=== PATIENT | female | born 1995 | race Caucasian/White ===

== ENCOUNTER 2017-11-23 21:57 | Emergency (ER) | payer SELFPAY ==
--- NOTE | 2017-11-23 22:18 | ER Report ---
History and Physical Time Seen By MD: 22:05 Hx. of Stated Complaint: PT WANTS TO CHECK INTO S HPI/ROS CHIEF COMPLAINT: Acute schizophrenia HISTORY OF PRESENT ILLNESS: 22-year-old female brought in by police from a truck stop. Patient was apparently traveling by hitchhiking with strangers. She was acting out at the truck stop and police officers responded. She was saying that were some men that were pointing guns at her. When asked to identify these people. The patient began to point at random truckers. And then she would deny that they were the ones. Patient admits to schizoaffective disorder. She states she's been off her meds. She denies drug or alcohol ingestion. She states she is from [place]. Patient would like to be admitted voluntarily to behavioral health services. REVIEW OF SYSTEMS: Respiratory: No cough, no dyspnea. Cardiovascular: No chest pain, no palpitations. Gastrointestinal: No vomiting, no abdominal pain. Musculoskeletal: No back pain. Allergies: Coded Allergies: No Known Drug Allergies (Unverified , 11/23/17) Home Meds No Active Prescriptions or Reported Meds Reviewed Nurses Notes: Yes Old Medical Records Reviewed: Yes Constitutional Vital Sign - Last 24 Hours 11/23/17 11/23/17 22:03 23:32 Temp 98.5 Pulse 118 Resp 14 B/P (MAP) 116/104 142/84 (103) Pulse Ox 93 O2 Delivery Room Air Physical Exam General Appearance: The patient is alert, has no immediate need for airway protection and no current signs of toxicity. Vital signs stable, afebrile, pulse ox normal HEENT: Pupils equal and round no injection. TMs normal, oropharynx without redness or exudate, mucous. Membranes are moist Respiratory: Chest is non tender, lungs are clear to auscultation. Cardiac: regular rate and rhythm Gastrointestinal: Abdomen is soft and non tender, no masses, bowel sounds normal. Musculoskeletal: Neck: Neck is supple and non tender. No thyromegaly, no meningismus, no lymphadenopathy Extremities have full range of motion and are non tender. Skin: No rashes or lesions. DIFFERENTIAL DIAGNOSIS: After history and physical exam differential diagnosis was considered for depression including functional and major depression, situational depression, medication side effect, paranoid schizophrenia, schizoaffective disorder drugs and alcohol abuse. Medical Decision Making Data Points Result Diagram: 11/23/178 11/23/172217 Laboratory Hematology Test 11/23/17 22:00 11/23/17 22:18 Urine Color Lore Urine Clarity Cloudy Urine pH 5.0 pH (4.8-9.5) Urine Specific Thomson 1.029 Urine Protein 100 mg/dL (NEGATIVE) Urine Glucose (UA) Negative mg/dL (NEGATIVE) Urine Ketones Trace mg/dL (NEGATIVE) Urine Blood Negative (NEGATIVE) Urine Nitrite Negative (NEGATIVE) Urine Bilirubin Small (NEGATIVE) Urine Urobilinogen 4.0 mg/dL (0.2-1.9) Urine Leukocyte Esterase Trace (NEGATIVE) Urine RBC 2 /HPF (0-2/HPF) Urine WBC 4 /HPF (0-5/HPF) Urine Squamous Epithelial Cells Many /LPF (</=FEW) Urine Transitional Epithelial Cells Many /LPF (NONE-FEW) Urine Bacteria Few /HPF (NONE-FEW) Urine Hyaline Casts Few /LPF (NONE-FEW) Urine Mucus Few /HPF (NONE-FEW) Urine HCG, Qualitative Negative (NEGATIVE) Urine Opiates Screen Negative Urine Barbiturates Screen Negative Ur Tricyclic Antidepressants Screen Negative Urine Phencyclidine Screen Negative Urine Amphetamines Screen Positive Urine Benzodiazepines Screen Negative Urine Cocaine Screen Negative Urine Cannabinoids Screen Negative Red Blood Count 5.47 M/uL (4.17-5.56) Mean Corpuscular Volume 87.3 fL (80.0-96.0) Mean Corpuscular Hemoglobin 30.2 pg (26.0-33.0) Mean Corpuscular Hemoglobin Concent 34.6 g/dL (32.0-36.0) Red Cell Distribution Width 12.9 % (11.5-14.5) Mean Platelet Volume 8.5 fL (7.2-11.1) Neutrophils (%) (Auto) 67.7 % (39.4-72.5) Lymphocytes (%) (Auto) 21.5 % (17.6-49.6) Monocytes (%) (Auto) 9.6 % (4.1-12.4) Eosinophils (%) (Auto) 0.5 % (0.4-6.7) Basophils (%) (Auto) 0.7 % (0.3-1.4) Nucleated RBC Relative Count (auto) 0.0 /100WBC Neutrophils # (Auto) 9.4 K/uL (2.0-7.4) Lymphocytes # (Auto) 3.0 K/uL (1.3-3.6) Monocytes # (Auto) 1.3 K/uL (0.3-1.0) Eosinophils # (Auto) 0.1 K/uL (0.0-0.5) Basophils # (Auto) 0.1 K/uL (0.0-0.1) Nucleated RBC Absolute Count (auto) 0.00 K/uL Sodium Level 140 mmol/L (137-145) Potassium Level 3.3 mmol/L (3.5-5.0) Chloride Level 100 mmol/L (98-107) Carbon Dioxide Level 25 mmol/L (22-31) Blood Urea Nitrogen 14 mg/dl (7-18) Creatinine 1.00 mg/dl (0.52-1.04) Glomerular Filtration Rate Calc > 60.0 Random Glucose 98 mg/dl (75-110) Calcium Level 9.9 mg/dl (8.4-10.2) Magnesium Level 2.2 mg/dl (1.7-2.2) Total Bilirubin 1.1 mg/dl (0.2-1.3) Aspartate Amino Transf (AST/SGOT) 203 U/L (0-35) Alanine Aminotransferase (ALT/SGPT) 443 U/L (0-56) Alkaline Phosphatase 89 U/L (0-126) Total Protein 8.8 g/dl (6.3-8.2) Albumin 5.3 g/dl (3.5-5.0) Thyroid Stimulating Hormone (TSH) 5.11 uIU/ml (0.46-4.68) Salicylates Level < 10 mg/L Salicylate Last Dose Date unk Acetaminophen Level < 10 ug/ml Serum Alcohol < 10 mg/dl Chemistry Test 11/23/17 22:00 11/23/17 22:18 Urine Color Lore Urine Clarity Cloudy Urine pH 5.0 pH (4.8-9.5) Urine Specific Thomson 1.029 Urine Protein 100 mg/dL (NEGATIVE) Urine Glucose (UA) Negative mg/dL (NEGATIVE) Urine Ketones Trace mg/dL (NEGATIVE) Urine Blood Negative (NEGATIVE) Urine Nitrite Negative (NEGATIVE) Urine Bilirubin Small (NEGATIVE) Urine Urobilinogen 4.0 mg/dL (0.2-1.9) Urine Leukocyte Esterase Trace (NEGATIVE) Urine RBC 2 /HPF (0-2/HPF) Urine WBC 4 /HPF (0-5/HPF) Urine Squamous Epithelial Cells Many /LPF (</=FEW) Urine Transitional Epithelial Cells Many /LPF (NONE-FEW) Urine Bacteria Few /HPF (NONE-FEW) Urine Hyaline Casts Few /LPF (NONE-FEW) Urine Mucus Few /HPF (NONE-FEW) Urine HCG, Qualitative Negative (NEGATIVE) Urine Opiates Screen Negative Urine Barbiturates Screen Negative Ur Tricyclic Antidepressants Screen Negative Urine Phencyclidine Screen Negative Urine Amphetamines Screen Positive Urine Benzodiazepines Screen Negative Urine Cocaine Screen Negative Urine Cannabinoids Screen Negative White Blood Count 13.8 k/uL (4.5-11.0) Red Blood Count 5.47 M/uL (4.17-5.56) Hemoglobin 16.5 g/dL (12.0-16.0) Hematocrit 47.8 % (34.0-47.0) Mean Corpuscular Volume 87.3 fL (80.0-96.0) Mean Corpuscular Hemoglobin 30.2 pg (26.0-33.0) Mean Corpuscular Hemoglobin Concent 34.6 g/dL (32.0-36.0) Red Cell Distribution Width 12.9 % (11.5-14.5) Platelet Count 316 K/uL (150-450) Mean Platelet Volume 8.5 fL (7.2-11.1) Neutrophils (%) (Auto) 67.7 % (39.4-72.5) Lymphocytes (%) (Auto) 21.5 % (17.6-49.6) Monocytes (%) (Auto) 9.6 % (4.1-12.4) Eosinophils (%) (Auto) 0.5 % (0.4-6.7) Basophils (%) (Auto) 0.7 % (0.3-1.4) Nucleated RBC Relative Count (auto) 0.0 /100WBC Neutrophils # (Auto) 9.4 K/uL (2.0-7.4) Lymphocytes # (Auto) 3.0 K/uL (1.3-3.6) Monocytes # (Auto) 1.3 K/uL (0.3-1.0) Eosinophils # (Auto) 0.1 K/uL (0.0-0.5) Basophils # (Auto) 0.1 K/uL (0.0-0.1) Nucleated RBC Absolute Count (auto) 0.00 K/uL Glomerular Filtration Rate Calc > 60.0 Calcium Level 9.9 mg/dl (8.4-10.2) Magnesium Level 2.2 mg/dl (1.7-2.2) Total Bilirubin 1.1 mg/dl (0.2-1.3) Aspartate Amino Transf (AST/SGOT) 203 U/L (0-35) Alanine Aminotransferase (ALT/SGPT) 443 U/L (0-56) Alkaline Phosphatase 89 U/L (0-126) Total Protein 8.8 g/dl (6.3-8.2) Albumin 5.3 g/dl (3.5-5.0) Thyroid Stimulating Hormone (TSH) 5.11 uIU/ml (0.46-4.68) Salicylates Level < 10 mg/L Salicylate Last Dose Date unk Acetaminophen Level < 10 ug/ml Serum Alcohol < 10 mg/dl Toxicology Test 11/23/17 22:00 11/23/17 22:18 Urine Opiates Screen Negative Urine Barbiturates Screen Negative Ur Tricyclic Antidepressants Screen Negative Urine Phencyclidine Screen Negative Urine Amphetamines Screen Positive Urine Benzodiazepines Screen Negative Urine Cocaine Screen Negative Urine Cannabinoids Screen Negative Salicylates Level < 10 mg/L Salicylate Last Dose Date unk Acetaminophen Level < 10 ug/ml Serum Alcohol < 10 mg/dl Urinalysis Test 11/23/17 22:00 Urine Color Lore Urine Clarity Cloudy Urine pH 5.0 pH (4.8-9.5) Urine Specific Thomson 1.029 Urine Protein 100 mg/dL (NEGATIVE) Urine Glucose (UA) Negative mg/dL (NEGATIVE) Urine Ketones Trace mg/dL (NEGATIVE) Urine Blood Negative (NEGATIVE) Urine Nitrite Negative (NEGATIVE) Urine Bilirubin Small (NEGATIVE) Urine Urobilinogen 4.0 mg/dL (0.2-1.9) Urine Leukocyte Esterase Trace (NEGATIVE) Urine RBC 2 /HPF (0-2/HPF) Urine WBC 4 /HPF (0-5/HPF) Urine Squamous Epithelial Cells Many /LPF (</=FEW) Urine Transitional Epithelial Cells Many /LPF (NONE-FEW) Urine Bacteria Few /HPF (NONE-FEW) Urine Hyaline Casts Few /LPF (NONE-FEW) Urine Mucus Few /HPF (NONE-FEW) Urine HCG, Qualitative Negative (NEGATIVE) ED Course/Re-evaluation ED Course Patient was admitted to an examination room. H&P was done. The differential diagnoses was considered. On clinical examination, there are no findings. Patient is no active suicidal ideation. Patient is quite tension so and her reasoning and thought processes. Tox screen is positive for methamphetamines. Patient wants to be admitted to behavioral health services voluntarily. 11/23/2017 11:16:58 pm case discussed with Dr. Selma Leija psychiatrist on-call , who accepts the patient for admission Decision to Disposition Date: Nov 23, 2017 Decision to Disposition Time: 22:17 Depart Departure Latest Vital Signs Vital Signs Date Time Temp Pulse Resp B/P (MAP) Pulse Ox O2 Delivery O2 Flow Rate FiO2 11/23/17 23:32 142/84 (103) 11/23/17 22:03 98.5 118 14 93 Room Air Impression: Primary Impression: Altered mental status, unspecified Additional Impressions: Schizoaffective disorder Amphetamine abuse Elevated liver function tests Condition: Improved Disposition: XFER TO [facility] New Scripts No Active Prescriptions or Reported Meds Problem Qualifiers Primary Impression: Altered mental status, unspecified Altered mental status type: disorientation Qualified Codes: R41.0 - Disorientation, unspecified Additional Impressions: Schizoaffective disorder Schizoaffective disorder type: unspecified Qualified Codes: F25.9 - Schizoaffective disorder, unspecified TARA DENTON DO Nov 23, 2017 22:18
[2017-11-23 22:25] LABS: PLATELET COUNT, AUTOMATED 316 K/uL (150-450)
[2017-11-23] MEDS ORDERED: hydrOXYzine PAMOATE 25 MG CAP PO ONE (22:55)
[2017-11-23] MEDS ORDERED: OLANZapine ZYDIS ODT 5MG TABDP PO ONE (22:55)
[2017-11-23 23:32] VITALS: BP 142/84
== END 2017-11-23 23:36 ==
LOC: ER 22:10
DX: F25.9 Schizoaffective disorder, unspecified (principal); R41.0 Disorientation, unspecified; R79.89 Other specified abnormal findings of blood chemistry; F15.10 Other stimulant abuse, uncomplicated
CPT/HCPCS: 36415; 80305; 80320; 80329; 81001; 81025; 83735; 84443; 85025; 99284; Q0177; 82040; 82247; 82310; 82374; 82435; 82565; 82947; 84075; 84132; 84155; 84295; 84450; 84460; 84520

== ENCOUNTER 2017-11-23 23:13 | Inpatient (IN) | payer SELFPAY ==
[~2017-11-23] VITALS: Ht 162.6 cm; Wt 56.7 kg
[2017-11-23] MEDS ORDERED: MAG HYD/AL HYD/SIMETH 30ML UDC PO PRN (23:55)
[2017-11-24 05:42] VITALS: BP 130/92
[2017-11-24] MEDS: FOLIC ACID 1 MG TAB PO SCH (08:56)
[2017-11-24] MEDS: MULTIVITAMINS PO SCH (08:56)
[2017-11-24] MEDS: THIAMINE HCL 100 MG TAB PO SCH (08:57)
[2017-11-24] MEDS ORDERED: NICOTINE CARTRIDGE 1 EA PO PRN (11:05)
[2017-11-24] MEDS ORDERED: NICOTINE INH SYSTEM 10 MG/INH INH PRN (11:05)
[2017-11-24] MEDS ORDERED: OLANZapine 5 MG TAB PO ONE (11:15)
[2017-11-24] MEDS ORDERED: LORazepam 1 MG TAB PO ONE (11:15)
[2017-11-24] MEDS: NICOTINE POLACRILEX 2 MG GUM PO PRN ×3 (13:13→15:54)
[2017-11-24] MEDS: OLANZapine 5 MG TAB PO PRN ×2 (13:34→21:47)
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
[2017-11-24] MEDS ORDERED: IBUPROFEN 200 MG TAB PO PRN (15:30)
[2017-11-24 16:06] VITALS: BP 105/85
[2017-11-24] MEDS ORDERED: ARIPiprazole 10 MG TAB PO SCH (21:00)
[2017-11-25 06:10] VITALS: BP 90/68
[2017-11-25] MEDS: NICOTINE POLACRILEX 2 MG GUM PO PRN (10:32)
--- NOTE | 2017-11-25 14:27 | [facility] Progress Note ---
[facility] - Subjective Progress Notes Subjective Pt seen in Unit C with team, and later individually. Pt slept much of yesterday -- she was medicated three times for agitation and psychosis with prn zyprexa. Today she woke easily, does not appear overmedicated, and continues with significant labile affect, tangential thought process, and acknowledges hearing voices. She is mostly cooperative but alternates with being irritable/agitated- - banging on the door hollering for pain medicine "because I ache all over." Continues to refuse blood draw for repeat CBC and chem panel, even with a lot of encouragement and explanation how important these repeat tests are, given elevated WBC and LFT's on admission. She will suddenly start giggling out of the blue, told me once that her father's voice said "That's funny Donna." Also says she hears God's voice. Pt said, when I told her importance of blood test, "Infections are not real, only God is real." Said to me at one point, out of the blue, "Can I have something for my bipolar?" Says she misses her father and wishes he was in heaven "instead of here with me." Refused blood draw again at noon-- told her we will need to maintain her in Unit C until we see she can be safe and cooperative with staff requests. She agrees to continue medications, will increase abilify to 15 mg as antipsychotic/mood stabilizer. Will continue use of zyprexa in the short term as prn for agitation/psychosis. I offered her Depakote but she refused, saying she has been on it before and it "did not work." I spoke with Grandmother today who reports pt sounds "not herself, like when she was sick before" on the phone. Grandmother confirms pt had history of bizarre laughter in past, prior to getting stabilized (briefly) on haldol. Hopefully as pt's psychosis remits she will cooperate with blood draw-- depending on lab reports may need further infectious work up inc. echo to r/o endocarditis. Hepatitis panel is still pending. Suicidal Ideation: None Homicidal Ideation: None [facility] - Objective Physical Exam Vital Signs Vital Signs 11/25/17 06:10 Temp 97.6 Pulse 66 B/P (MAP) 90/68 (75) Pulse Ox 95 O2 Delivery Room Air Muscle Strength and Tone: WNL Gait and Station: Steady [facility] Medications Reviewed: Side Effects, Benefits of Medication, Risks Allergies Reviewed: Yes Mental Status Exam General Appearance: Unkept, Tearful, Psychomotor Agitation, Bizarre Mannerisms (laughter) Speech: Delayed, Rambling, Other (low volume and hard to understand often) Mood: Dysthmic/Depressed Affect: Tearful, Anxious, Agitated, Other (quite labile: variably and unpredictably anxious, irritable, laughter, withdrawn ) Thought Process: Other (tangential often-- will answer some questions logically , then suddenly off topic) Thought Content: No Suicidal Ideation, No Homicidal Ideation, Delusions (Asked to talk to her father (), says he is "here"), Auditory Halllucinations, No Visual Hallucinations, No Thought Broadcasting, No Ideas of Reference, No Obsessions, No Compulsions, No Other Sensorium: Clear Cognition: Alert & Oriented-Person, Alert & Oriented-Place, Alert & Oriented- Time, [id number] Memory: Immediate, Recent, Remote Intelligence: Average Insight Judgment: Poor Lab Hematology Test 11/24/17 00:00 11/24/17 22:18 HIV (1&2) Antibody Negative (NEGATIVE) Chemistry Test 11/24/17 00:00 11/24/17 22:18 HIV (1&2) Antibody Negative (NEGATIVE) [facility] Assessment and Plan [id number] Encounter Date: Nov 25, 2017 [id number] Encounter Time: 11:00 Tobacco Medications: Started Multpiple Antipsychotics Used: Yes Reason For >1 Antipsychotic: Abilify for ongoing use, zyprexa only for short term as prn. Problems: (1) Amphetamine abuse Status: Acute (2) Schizoaffective disorder Status: Acute (3) Abnormal laboratory test Assessment & Plan: Significantly elevated LFT's and WBC-- worrisome for hepatitis in this pt with hx IVDA. Hepatitis panel is pending. HIV is negative. Pt still refusing repeat chem panel and CBC based (at least in part) on continued psychosis. Afebrile, no physical complaints of significance. Hopefully as psychosis remits we can get repeat labs tomorrow. Consider echocardiogram to r/o endocarditis if pt still refuses repeat CBC and/or if WBC remains elevated. MAINOR OCHOA MD Nov 25, 2017 14:27
[2017-11-25] MEDS ORDERED: ARIPiprazole 10 MG TAB PO SCH (21:00)
[2017-11-25] MEDS: OLANZapine 5 MG TAB PO PRN (21:03)
[2017-11-25 21:11] VITALS: BP 90/55
[2017-11-26] MEDS: THIAMINE HCL 100 MG TAB PO SCH ×2 (08:04→08:13)
[2017-11-26] MEDS: MULTIVITAMINS PO SCH ×2 (08:04→08:12)
[2017-11-26] MEDS: FOLIC ACID 1 MG TAB PO SCH ×2 (08:04→08:13)
[2017-11-26] MEDS: OLANZapine 5 MG TAB PO PRN (09:30)
[2017-11-26] MEDS ORDERED: NICOTINE INH SYSTEM 10 MG/INH INH PRN (09:45)
[2017-11-26] MEDS ORDERED: NICOTINE CARTRIDGE 1 EA PO PRN (09:45)
[2017-11-26 11:27] LABS: PLATELET COUNT, AUTOMATED 241 K/uL (150-450)
[2017-11-26] MEDS: NICOTINE POLACRILEX 2 MG GUM PO PRN ×5 (11:42→19:54)
--- NOTE | 2017-11-26 11:52 | EKG ---
FACILITY: [facility] PATIENT NAME: JESSIE PERDOMO : [id number] MR: [id number] V: [id number] EXAM DATE: ORDERING PHYSICIAN: ALEKSANDR GALDAMEZ TECHNOLOGIST: BRAYDEN Test Reason : PSYCH USE Blood Pressure : / mmHG Vent. Rate : 083 BPM Atrial Rate : 083 BPM P-R Int : 154 ms QRS Dur : 086 ms QT Int : 394 ms P-R-T Axes : 064 085 067 degrees QTc Int : 462 ms Normal sinus rhythm with sinus arrhythmia Normal ECG No previous ECGs available Referred By: DENICE Confirmed By:
--- NOTE | 2017-11-26 12:59 | BHS Progress Note ---
S - Subjective Progress Notes Subjective Patient is cooperative with lab draw today, but appears to be responding to internal stimuli. Patient very active in her room, laughing to herself, and dancing. Will continue treatment, and planning for hopeful discharge to [place]. Will have EKG,, further labs, and switch to thorazine for sedation. Will continue to attempt contact with out of state family. Hep panel pending. Suicidal Ideation: None Homicidal Ideation: None [facility] - Objective Physical Exam Vital Signs Hematology Test 11/24/17 00:00 11/24/17 22:18 11/26/17 00:00 11/26/17 08:00 HIV (1&2) Antibody Negative (NEGATIVE) Urine Color Lore Urine Clarity Slightly-cloudy Urine pH 6.0 pH (4.8-9.5) Urine Specific [place] 1.032 Urine Protein Negative mg/dL (NEGATIVE) Urine Glucose (UA) Negative mg/dL (NEGATIVE) Urine Ketones Negative mg/dL (NEGATIVE) Urine Blood Negative (NEGATIVE) Urine Nitrite Negative (NEGATIVE) Urine Bilirubin Negative (NEGATIVE) Urine Urobilinogen 4.0 mg/dL (0.2-1.9) Urine Leukocyte Esterase Negative (NEGATIVE) Urine RBC None /HPF (0-2/HPF) Urine WBC 6 /HPF (0-5/HPF) Urine Squamous Epithelial Cells Many /LPF (</=FEW) Urine Bacteria Few /HPF (NONE-FEW) Urine Hyaline Casts Few /LPF (NONE-FEW) Urine Mucus Few /HPF (NONE-FEW) Urine HCG, Qualitative Negative (NEGATIVE) Test 11/26/17 11:10 Red Blood Count 4.60 M/uL (4.17-5.56) Mean Corpuscular Volume 88.3 fL (80.0-96.0) Mean Corpuscular Hemoglobin 30.1 pg (26.0-33.0) Mean Corpuscular Hemoglobin Concent 34.1 g/dL (32.0-36.0) Red Cell Distribution Width 13.1 % (11.5-14.5) Mean Platelet Volume 8.8 fL (7.2-11.1) Neutrophils (%) (Auto) 57.8 % (39.4-72.5) Lymphocytes (%) (Auto) 29.4 % (17.6-49.6) Monocytes (%) (Auto) 10.7 % (4.1-12.4) Eosinophils (%) (Auto) 1.6 % (0.4-6.7) Basophils (%) (Auto) 0.5 % (0.3-1.4) Nucleated RBC Relative Count (auto) 0.0 /100WBC Neutrophils # (Auto) 3.3 K/uL (2.0-7.4) Lymphocytes # (Auto) 1.7 K/uL (1.3-3.6) Monocytes # (Auto) 0.6 K/uL (0.3-1.0) Eosinophils # (Auto) 0.1 K/uL (0.0-0.5) Basophils # (Auto) 0.0 K/uL (0.0-0.1) Nucleated RBC Absolute Count (auto) 0.00 K/uL Sodium Level 143 mmol/L (137-145) Potassium Level 3.5 mmol/L (3.5-5.0) Chloride Level 104 mmol/L (98-107) Carbon Dioxide Level 26 mmol/L (22-31) Blood Urea Nitrogen 12 mg/dl (7-18) Creatinine 0.70 mg/dl (0.52-1.04) Glomerular Filtration Rate Calc > 60.0 Random Glucose 82 mg/dl (75-110) Calcium Level 9.2 mg/dl (8.4-10.2) Total Bilirubin 0.4 mg/dl (0.2-1.3) Aspartate Amino Transf (AST/SGOT) 160 U/L (0-35) Alanine Aminotransferase (ALT/SGPT) 334 U/L (0-56) Alkaline Phosphatase 63 U/L (0-126) Total Protein 6.4 g/dl (6.3-8.2) Albumin 4.0 g/dl (3.5-5.0) Chemistry Test 11/24/17 00:00 11/24/17 22:18 11/26/17 00:00 11/26/17 08:00 HIV (1&2) Antibody Negative (NEGATIVE) Urine Color Lore Urine Clarity Slightly-cloudy Urine pH 6.0 pH (4.8-9.5) Urine Specific Carson 1.032 Urine Protein Negative mg/dL (NEGATIVE) Urine Glucose (UA) Negative mg/dL (NEGATIVE) Urine Ketones Negative mg/dL (NEGATIVE) Urine Blood Negative (NEGATIVE) Urine Nitrite Negative (NEGATIVE) Urine Bilirubin Negative (NEGATIVE) Urine Urobilinogen 4.0 mg/dL (0.2-1.9) Urine Leukocyte Esterase Negative (NEGATIVE) Urine RBC None /HPF (0-2/HPF) Urine WBC 6 /HPF (0-5/HPF) Urine Squamous Epithelial Cells Many /LPF (</=FEW) Urine Bacteria Few /HPF (NONE-FEW) Urine Hyaline Casts Few /LPF (NONE-FEW) Urine Mucus Few /HPF (NONE-FEW) Urine HCG, Qualitative Negative (NEGATIVE) Test 11/26/17 11:10 White Blood Count 5.8 k/uL (4.5-11.0) Red Blood Count 4.60 M/uL (4.17-5.56) Hemoglobin 13.8 g/dL (12.0-16.0) Hematocrit 40.6 % (34.0-47.0) Mean Corpuscular Volume 88.3 fL (80.0-96.0) Mean Corpuscular Hemoglobin 30.1 pg (26.0-33.0) Mean Corpuscular Hemoglobin Concent 34.1 g/dL (32.0-36.0) Red Cell Distribution Width 13.1 % (11.5-14.5) Platelet Count 241 K/uL (150-450) Mean Platelet Volume 8.8 fL (7.2-11.1) Neutrophils (%) (Auto) 57.8 % (39.4-72.5) Lymphocytes (%) (Auto) 29.4 % (17.6-49.6) Monocytes (%) (Auto) 10.7 % (4.1-12.4) Eosinophils (%) (Auto) 1.6 % (0.4-6.7) Basophils (%) (Auto) 0.5 % (0.3-1.4) Nucleated RBC Relative Count (auto) 0.0 /100WBC Neutrophils # (Auto) 3.3 K/uL (2.0-7.4) Lymphocytes # (Auto) 1.7 K/uL (1.3-3.6) Monocytes # (Auto) 0.6 K/uL (0.3-1.0) Eosinophils # (Auto) 0.1 K/uL (0.0-0.5) Basophils # (Auto) 0.0 K/uL (0.0-0.1) Nucleated RBC Absolute Count (auto) 0.00 K/uL Glomerular Filtration Rate Calc > 60.0 Calcium Level 9.2 mg/dl (8.4-10.2) Total Bilirubin 0.4 mg/dl (0.2-1.3) Aspartate Amino Transf (AST/SGOT) 160 U/L (0-35) Alanine Aminotransferase (ALT/SGPT) 334 U/L (0-56) Alkaline Phosphatase 63 U/L (0-126) Total Protein 6.4 g/dl (6.3-8.2) Albumin 4.0 g/dl (3.5-5.0) Urinalysis Test 11/26/17 00:00 11/26/17 08:00 Urine Color Lore Urine Clarity Slightly-cloudy Urine pH 6.0 pH (4.8-9.5) Urine Specific Carson 1.032 Urine Protein Negative mg/dL (NEGATIVE) Urine Glucose (UA) Negative mg/dL (NEGATIVE) Urine Ketones Negative mg/dL (NEGATIVE) Urine Blood Negative (NEGATIVE) Urine Nitrite Negative (NEGATIVE) Urine Bilirubin Negative (NEGATIVE) Urine Urobilinogen 4.0 mg/dL (0.2-1.9) Urine Leukocyte Esterase Negative (NEGATIVE) Urine RBC None /HPF (0-2/HPF) Urine WBC 6 /HPF (0-5/HPF) Urine Squamous Epithelial Cells Many /LPF (</=FEW) Urine Bacteria Few /HPF (NONE-FEW) Urine Hyaline Casts Few /LPF (NONE-FEW) Urine Mucus Few /HPF (NONE-FEW) Urine HCG, Qualitative Negative (NEGATIVE) Vital Signs Date Time Temp Pulse Resp B/P (MAP) Pulse Ox O2 Delivery O2 Flow Rate FiO2 11/25/17 21:11 99.1 75 90/55 (67) 96 Room Air Muscle Strength and Tone: WNL Gait and Station: Steady [facility] Medications Reviewed: Side Effects, Benefits of Medication, Risks Allergies Reviewed: Yes Mental Status Exam General Appearance: Casual, Polite, Unkept, No Tearful, Psychomotor Agitation, Bizarre Mannerisms (laughter) Speech: Delayed, Rambling, Other (low volume and hard to understand often) Mood: Dysthmic/Depressed Affect: No Tearful, Anxious, Agitated, Other (quite labile: variably and unpredictably anxious, irritable, laughter, withdrawn ) Thought Process: Goal Directed (I want ativan), Other (tangential often-- will answer some questions logically, then suddenly off topic) Thought Content: No Suicidal Ideation, No Homicidal Ideation, Delusions (Asked to talk to her father (), says he is "here"), Auditory Halllucinations, No Visual Hallucinations, No Thought Broadcasting, No Ideas of Reference, No Obsessions, No Compulsions, No Other Sensorium: Clear Cognition: Alert & Oriented-Person, Alert & Oriented-Place, Alert & Oriented- Time, Pwtdh-Ajaysjbh-Ebdhjoypk Memory: Immediate, Recent, Remote Intelligence: Average Insight Judgment: Poor (grossly limited) Result Diagram: 11/26/17 1110 11/26/17 1110 [facility] Assessment and Plan Dwry-sv-[id number] Encounter Date: Nov 26, 2017 Gnnp-rc-Hryy Encounter Time: 11:00 Tobacco Medications: Started Multpiple Antipsychotics Used: No Reason For >1 Antipsychotic: Will use Thorazine, as more predictable sedation. Problems: (1) Amphetamine abuse Status: Chronic (2) Schizoaffective disorder Status: Chronic Condition 1. continue treatment. 2. patient will start thorazine. 3. stop abilify and zyprexa. 4. formulate discharge plan. Problem Qualifiers (1) Schizoaffective disorder: Schizoaffective disorder type: unspecified Qualified Codes: F25.9 - Schizoaffective disorder, unspecified ALEKSANDR GALDAMEZ MD Nov 26, 2017 12:59
[2017-11-26] MEDS: chlorproMAZINE 25 MG TAB PO PRN ×3 (18:55→21:19)
[2017-11-26] MEDS ORDERED: chlorproMAZINE 25 MG TAB PO ONE (19:05)
[2017-11-26] MEDS: chlorproMAZINE 25 MG TAB PO SCH (21:00)
[2017-11-26 21:23] VITALS: BP 111/66
[2017-11-27] MEDS: MULTIVITAMINS PO SCH (08:36)
[2017-11-27] MEDS: FOLIC ACID 1 MG TAB PO SCH (08:36)
[2017-11-27] MEDS: THIAMINE HCL 100 MG TAB PO SCH (08:37)
[2017-11-27] MEDS: NICOTINE POLACRILEX 2 MG GUM PO PRN ×9 (10:35→20:28)
--- NOTE | 2017-11-27 12:00 | BHS Progress Note ---
BHS - Subjective Progress Notes Subjective Patient stating "I want to go home to [facility]" today, and able to exit her room and be with the general population, with no concerns. Patient having restorative sleep with the administration of thorazine at [facility]. Will continue thorazine for its more predictable sedating effects, and will stop zyprexa and abilify. Patient noted to have previously undiagnosed hepatitis C, and patient information will be provided. Will work toward having patient return to [place], and strongly encourage her to refrain from continuing current destructive lifestyle, and continue treatment. Suicidal Ideation: None Homicidal Ideation: None S - Objective Physical Exam Vital Signs Vital Signs Date Time Temp Pulse Resp B/P (MAP) Pulse Ox O2 Delivery O2 Flow Rate FiO2 11/26/17 21:23 98.4 86 111/66 (81) 97 Room Air Hematology Test 11/24/17 00:00 11/24/17 22:18 11/26/17 00:00 11/26/17 08:00 Hepatitis A IgM Antibody Negative (Negative) Hepatitis B Surface Antigen Negative (Negative) Hepatitis B Core IgM Antibody Negative (Negative) Hepatitis C Antibody >11.00 IV Hepatitis C Interpretation High pos (Negative) Hepatitis Interpretation See note HIV (1&2) Antibody Negative (NEGATIVE) Urine Color Lore Urine Clarity Slightly-cloudy Urine pH 6.0 pH (4.8-9.5) Urine Specific [place] 1.032 Urine Protein Negative mg/dL (NEGATIVE) Urine Glucose (UA) Negative mg/dL (NEGATIVE) Urine Ketones Negative mg/dL (NEGATIVE) Urine Blood Negative (NEGATIVE) Urine Nitrite Negative (NEGATIVE) Urine Bilirubin Negative (NEGATIVE) Urine Urobilinogen 4.0 mg/dL (0.2-1.9) Urine Leukocyte Esterase Negative (NEGATIVE) Urine RBC None /HPF (0-2/HPF) Urine WBC 6 /HPF (0-5/HPF) Urine Squamous Epithelial Cells Many /LPF (</=FEW) Urine Bacteria Few /HPF (NONE-FEW) Urine Hyaline Casts Few /LPF (NONE-FEW) Urine Mucus Few /HPF (NONE-FEW) Urine HCG, Qualitative Negative (NEGATIVE) Test 11/26/17 11:10 Red Blood Count 4.60 M/uL (4.17-5.56) Mean Corpuscular Volume 88.3 fL (80.0-96.0) Mean Corpuscular Hemoglobin 30.1 pg (26.0-33.0) Mean Corpuscular Hemoglobin Concent 34.1 g/dL (32.0-36.0) Red Cell Distribution Width 13.1 % (11.5-14.5) Mean Platelet Volume 8.8 fL (7.2-11.1) Neutrophils (%) (Auto) 57.8 % (39.4-72.5) Lymphocytes (%) (Auto) 29.4 % (17.6-49.6) Monocytes (%) (Auto) 10.7 % (4.1-12.4) Eosinophils (%) (Auto) 1.6 % (0.4-6.7) Basophils (%) (Auto) 0.5 % (0.3-1.4) Nucleated RBC Relative Count (auto) 0.0 /100WBC Neutrophils # (Auto) 3.3 K/uL (2.0-7.4) Lymphocytes # (Auto) 1.7 K/uL (1.3-3.6) Monocytes # (Auto) 0.6 K/uL (0.3-1.0) Eosinophils # (Auto) 0.1 K/uL (0.0-0.5) Basophils # (Auto) 0.0 K/uL (0.0-0.1) Nucleated RBC Absolute Count (auto) 0.00 K/uL Sodium Level 143 mmol/L (137-145) Potassium Level 3.5 mmol/L (3.5-5.0) Chloride Level 104 mmol/L (98-107) Carbon Dioxide Level 26 mmol/L (22-31) Blood Urea Nitrogen 12 mg/dl (7-18) Creatinine 0.70 mg/dl (0.52-1.04) Glomerular Filtration Rate Calc > 60.0 Random Glucose 82 mg/dl (75-110) Calcium Level 9.2 mg/dl (8.4-10.2) Total Bilirubin 0.4 mg/dl (0.2-1.3) Aspartate Amino Transf (AST/SGOT) 160 U/L (0-35) Alanine Aminotransferase (ALT/SGPT) 334 U/L (0-56) Alkaline Phosphatase 63 U/L (0-126) Total Protein 6.4 g/dl (6.3-8.2) Albumin 4.0 g/dl (3.5-5.0) Free Thyroxine 1.57 ng/dl (0.78-2.19) Chemistry Test 11/24/17 00:00 11/24/17 22:18 11/26/17 00:00 11/26/17 08:00 Hepatitis A IgM Antibody Negative (Negative) Hepatitis B Surface Antigen Negative (Negative) Hepatitis B Core IgM Antibody Negative (Negative) Hepatitis C Antibody >11.00 IV Hepatitis C Interpretation High pos (Negative) Hepatitis Interpretation See note HIV (1&2) Antibody Negative (NEGATIVE) Urine Color Lore Urine Clarity Slightly-cloudy Urine pH 6.0 pH (4.8-9.5) Urine Specific [place] 1.032 Urine Protein Negative mg/dL (NEGATIVE) Urine Glucose (UA) Negative mg/dL (NEGATIVE) Urine Ketones Negative mg/dL (NEGATIVE) Urine Blood Negative (NEGATIVE) Urine Nitrite Negative (NEGATIVE) Urine Bilirubin Negative (NEGATIVE) Urine Urobilinogen 4.0 mg/dL (0.2-1.9) Urine Leukocyte Esterase Negative (NEGATIVE) Urine RBC None /HPF (0-2/HPF) Urine WBC 6 /HPF (0-5/HPF) Urine Squamous Epithelial Cells Many /LPF (</=FEW) Urine Bacteria Few /HPF (NONE-FEW) Urine Hyaline Casts Few /LPF (NONE-FEW) Urine Mucus Few /HPF (NONE-FEW) Urine HCG, Qualitative Negative (NEGATIVE) Test 11/26/17 11:10 White Blood Count 5.8 k/uL (4.5-11.0) Red Blood Count 4.60 M/uL (4.17-5.56) Hemoglobin 13.8 g/dL (12.0-16.0) Hematocrit 40.6 % (34.0-47.0) Mean Corpuscular Volume 88.3 fL (80.0-96.0) Mean Corpuscular Hemoglobin 30.1 pg (26.0-33.0) Mean Corpuscular Hemoglobin Concent 34.1 g/dL (32.0-36.0) Red Cell Distribution Width 13.1 % (11.5-14.5) Platelet Count 241 K/uL (150-450) Mean Platelet Volume 8.8 fL (7.2-11.1) Neutrophils (%) (Auto) 57.8 % (39.4-72.5) Lymphocytes (%) (Auto) 29.4 % (17.6-49.6) Monocytes (%) (Auto) 10.7 % (4.1-12.4) Eosinophils (%) (Auto) 1.6 % (0.4-6.7) Basophils (%) (Auto) 0.5 % (0.3-1.4) Nucleated RBC Relative Count (auto) 0.0 /100WBC Neutrophils # (Auto) 3.3 K/uL (2.0-7.4) Lymphocytes # (Auto) 1.7 K/uL (1.3-3.6) Monocytes # (Auto) 0.6 K/uL (0.3-1.0) Eosinophils # (Auto) 0.1 K/uL (0.0-0.5) Basophils # (Auto) 0.0 K/uL (0.0-0.1) Nucleated RBC Absolute Count (auto) 0.00 K/uL Glomerular Filtration Rate Calc > 60.0 Calcium Level 9.2 mg/dl (8.4-10.2) Total Bilirubin 0.4 mg/dl (0.2-1.3) Aspartate Amino Transf (AST/SGOT) 160 U/L (0-35) Alanine Aminotransferase (ALT/SGPT) 334 U/L (0-56) Alkaline Phosphatase 63 U/L (0-126) Total Protein 6.4 g/dl (6.3-8.2) Albumin 4.0 g/dl (3.5-5.0) Free Thyroxine 1.57 ng/dl (0.78-2.19) Urinalysis Test 11/26/17 00:00 11/26/17 08:00 Urine Color Lore Urine Clarity Slightly-cloudy Urine pH 6.0 pH (4.8-9.5) Urine Specific [place] 1.032 Urine Protein Negative mg/dL (NEGATIVE) Urine Glucose (UA) Negative mg/dL (NEGATIVE) Urine Ketones Negative mg/dL (NEGATIVE) Urine Blood Negative (NEGATIVE) Urine Nitrite Negative (NEGATIVE) Urine Bilirubin Negative (NEGATIVE) Urine Urobilinogen 4.0 mg/dL (0.2-1.9) Urine Leukocyte Esterase Negative (NEGATIVE) Urine RBC None /HPF (0-2/HPF) Urine WBC 6 /HPF (0-5/HPF) Urine Squamous Epithelial Cells Many /LPF (</=FEW) Urine Bacteria Few /HPF (NONE-FEW) Urine Hyaline Casts Few /LPF (NONE-FEW) Urine Mucus Few /HPF (NONE-FEW) Urine HCG, Qualitative Negative (NEGATIVE) Muscle Strength and Tone: WNL Gait and Station: Steady [facility] Medications Reviewed: Side Effects, Benefits of Medication, Risks Allergies Reviewed: Yes Mental Status Exam General Appearance: Casual, Polite, Unkept, No Tearful, Psychomotor Agitation, Bizarre Mannerisms (laughter) Speech: Delayed, Rambling, Other (low volume and hard to understand often) Mood: Dysthmic/Depressed Affect: No Tearful, Anxious, Agitated, Other (quite labile: variably and unpredictably anxious, irritable, laughter, withdrawn ) Thought Process: Goal Directed (I want ativan), Other (tangential often-- will answer some questions logically, then suddenly off topic) Thought Content: No Suicidal Ideation, No Homicidal Ideation, Delusions (Asked to talk to her father (), says he is "here"), Auditory Halllucinations, No Visual Hallucinations, No Thought Broadcasting, No Ideas of Reference, No Obsessions, No Compulsions, No Other Sensorium: Clear Cognition: Alert & Oriented-Person, Alert & Oriented-Place, Alert & Oriented- Time, Ttixc-Cwvhbeus-Cuqnlgiey Memory: Immediate, Recent, Remote Intelligence: Average Insight Judgment: Poor (strong history of addiction, poor life skills. ) Result Diagram: 11/26/17 1110 11/26/17 1110 [facility] Assessment and Plan Abcc-ec-Lbcz Encounter Date: Nov 27, 2017 Oxxo-vf-Vpfy Encounter Time: 10:00 [facility] Plan: Necessary Precautions, Individual/Group Therapy, Admin/Titrate Meds, Educate Patient Tobacco Medications: Started Multpiple Antipsychotics Used: No Reason For >1 Antipsychotic: Will use Thorazine, as more predictable sedation. Problems: (1) Amphetamine abuse Status: Chronic (2) Schizoaffective disorder Status: Chronic Condition 1. continue thorazine. 2. arrange for travel to [place]. Problem Qualifiers (1) Schizoaffective disorder: Schizoaffective disorder type: unspecified Qualified Codes: F25.9 - Schizoaffective disorder, unspecified ALEKSANDR GALDAMEZ MD Nov 27, 2017 12:00
[2017-11-27] MEDS: chlorproMAZINE 25 MG TAB PO PRN (12:36)
[2017-11-27] MEDS ORDERED: LORazepam 1 MG TAB PO ONE (12:50)
[2017-11-27] MEDS ORDERED: chlorproMAZINE 25 MG TAB PO ONE (12:50)
[2017-11-27 13:24] VITALS: BP 111/78
[2017-11-27] MEDS: diphenhydrAMINE 25 MG CAP PO SCH (20:28)
[2017-11-27] MEDS: chlorproMAZINE 25 MG TAB PO SCH (20:30)
[2017-11-27 21:49] VITALS: BP 128/83
[2017-11-28] MEDS: THIAMINE HCL 100 MG TAB PO SCH ×2 (08:26→08:30)
[2017-11-28] MEDS: FOLIC ACID 1 MG TAB PO SCH ×2 (08:26→08:30)
[2017-11-28] MEDS: MULTIVITAMINS PO SCH ×2 (08:26→08:30)
[2017-11-28] MEDS: NICOTINE POLACRILEX 2 MG GUM PO PRN ×4 (10:51→20:16)
[2017-11-28] MEDS ORDERED: QUEtiapine FUM 100 MG TAB PO ONE (10:55)
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
[2017-11-28] MEDS: chlorproMAZINE 25 MG TAB PO SCH (20:15)
[2017-11-28] MEDS: diphenhydrAMINE 25 MG CAP PO SCH (20:15)
[2017-11-29] MEDS: MULTIVITAMINS PO SCH (08:32)
[2017-11-29] MEDS: THIAMINE HCL 100 MG TAB PO SCH (08:33)
[2017-11-29] MEDS: FOLIC ACID 1 MG TAB PO SCH (08:33)
[2017-11-29 09:02] VITALS: BP 129/67
[2017-11-29] MEDS: NICOTINE POLACRILEX 2 MG GUM PO PRN (11:33)
[2017-11-29] MEDS ORDERED: NICOTINE CARTRIDGE 1 EA PO PRN (11:40)
[2017-11-29] MEDS: chlorproMAZINE 25 MG TAB PO SCH (12:52)
[2017-11-29] MEDS: NICOTINE INH SYSTEM 10 MG/INH INH PRN (14:15)
[2017-11-29] MEDS ORDERED: chlorproMAZINE 25 MG TAB PO ONE ×2 (15:00→15:05)
[2017-11-29] MEDS ORDERED: LORazepam 1 MG TAB ONE (15:03)
[2017-11-29] MEDS ORDERED: diphenhydrAMINE 25 MG CAP PO ONE (15:05)
[2017-11-29] MEDS ORDERED: LORazepam 1 MG TAB PO ONE (15:05)
--- NOTE | 2017-11-29 15:48 | BHS Progress Note ---
[facility] - Subjective Progress Notes Subjective Pt continues to be extremely labile-- one minute cooperative, the next laughing to herself, the next angry and banging doors. She had episode this afternoon where she let out a blood-curdling scream, then took off clothes and started banging her head against the wall. Medicated orally with CPZ 50 mg, benadryl 50 mg and ativan 2 mg with good result. Pt still reporting hearing AH of her fathers voice, still c/o mood swings, racing thoughts, paces the unit a lot, needy with multiple requests from nursing staff, often requesting "medicine for anxiety", or "medicine for my bipolar." Will increase standing dose CPZ to 100 mg q am and 150 mg q HS, and use prn's as needed. Suicidal Ideation: None Homicidal Ideation: None [facility] - Objective Physical Exam Vital Signs Vital Signs 11/29/17 09:02 Temp 98.0 Pulse 102 B/P (MAP) 129/67 (87) Pulse Ox 96 O2 Delivery Room Air Muscle Strength and Tone: WNL Gait and Station: Steady [facility] Medications Reviewed: Side Effects, Benefits of Medication, Risks Allergies Reviewed: Yes Mental Status Exam General Appearance: Unkept, Other (aggressive today one episode slamming doors , head-banging) Speech: Rambling, Inappropriate, Other (low volume at times, at other times yelling and cursing) Mood: Dysthmic/Depressed (upset today about not leaving with lease purchase truck driver who she says is coming to get her) Affect: Withdrawn, Agitated (extremely labile) Thought Process: Loose Associations Thought Content: Suicidal Ideation (Denies), No Homicidal Ideation, Delusions, Auditory Halllucinations, No Visual Hallucinations, No Thought Broadcasting, No Ideas of Reference, No Obsessions, No Compulsions, Other (Laughs bizzarely at stimuli that seems to be internal. ) Sensorium: Clear Cognition: Alert & Oriented-Person, Alert & Oriented-Place, Alert & Oriented- Time Memory: Immediate Intelligence: Average Insight Judgment: Poor Result Diagram: 11/26/17 1110 11/26/17 1110 [facility] Assessment and Plan [id number] Encounter Date: Nov 29, 2017 Godr-bi-Sjea Encounter Time: 10:00 [facility] Plan: Necessary Precautions, Individual/Group Therapy, Admin/Titrate Meds, Educate Patient Tobacco Medications: Started Multpiple Antipsychotics Used: No Reason For >1 Antipsychotic: Will use Thorazine, as more predictable sedation. Problems: (1) Schizoaffective disorder Status: Chronic (2) Amphetamine abuse Status: Chronic (3) Hepatitis C Problem Qualifiers (1) Schizoaffective disorder: Schizoaffective disorder type: unspecified Qualified Codes: F25.9 - Schizoaffective disorder, unspecified MAINOR OCHOA MD Nov 29, 2017 15:48
[2017-11-29] MEDS ORDERED: chlorproMAZINE 25 MG TAB PO SCH (21:00)
[2017-11-29 21:35] VITALS: BP 123/64
[2017-11-29] MEDS: diphenhydrAMINE 25 MG CAP PO SCH (22:07)
[2017-11-30 05:51] VITALS: BP 95/50
[2017-11-30] MEDS: MULTIVITAMINS PO SCH (08:06)
[2017-11-30] MEDS: THIAMINE HCL 100 MG TAB PO SCH (08:06)
[2017-11-30] MEDS: chlorproMAZINE 25 MG TAB PO SCH (08:06)
[2017-11-30] MEDS: FOLIC ACID 1 MG TAB PO SCH (08:06)
--- NOTE | 2017-11-30 14:02 | BHS Progress Note ---
[facility] - Subjective Progress Notes Subjective Pt. seen. She continues to be highly labile-- this morning refused to come out of bed, swore at the therapist. Later cooperative, came to the conference room , discussed her medications with me. She continues to say that "these meds aren 't working," referring to thorazine. I did point out to her that although she says that, we do see some slow improvement in terms of less psychosis, better sleep, somewhat more mood stability. She continues to press for benzo's, asking for valium or ativan. Again we discussed that benzo's are contraindicated bc of her history of substance abuse as well as ineffective as mood stabilizers. I gave her a choice between using seroquel or thorazine as her standing mood stabilizer, and she chose seroquel. Told her that barring any significant side effects, we are NOT discussing or changing her standing meds any more, since she has been so ambivalent and needy requesting meds and changes. She is still disorganized in her behavior, her room has trash on the floor, she needed encouragement to get a shower. Tolerating meds well so far-- her BP was a little lower this am after 150mg of thorazine last night. Seroquel will likely be better tolerated in terms of BP... Her hearing is Sunday am for mental health court. Pt with schizoaffective disorder, methamphetamine dependence, vulnerable young adult, needs longer time on medication for stabilization before she can safely travel back to [place] and transition to outpatient care. Suicidal Ideation: None Homicidal Ideation: None [facility] - Objective Physical Exam Vital Signs Vital Signs 11/30/17 05:51 Temp 97.1 Pulse 90 B/P (MAP) 95/50 (65) Pulse Ox 95 O2 Delivery Room Air Muscle Strength and Tone: WNL Gait and Station: Steady [facility] Medications Reviewed: Side Effects, Benefits of Medication, Risks Allergies Reviewed: Yes Mental Status Exam General Appearance: Unkept Speech: Rambling, Inappropriate, Other (low volume at times, at other times yelling and cursing) Mood: Dysthmic/Depressed (upset today about not leaving with truck sales representative who she says is coming to get her) Affect: Withdrawn, Agitated (extremely labile), Other (labile with bizarre laughter at times) Thought Process: Other (circumstantial at best, often tangential) Thought Content: No Suicidal Ideation, No Homicidal Ideation, Delusions, Auditory Halllucinations, No Visual Hallucinations, No Thought Broadcasting, No Ideas of Reference, No Obsessions, No Compulsions, Other (Laughs bizzarely at stimuli that seems to be internal. ) Sensorium: Clear Cognition: Alert & Oriented-Person, Alert & Oriented-Place, Alert & Oriented- Time Memory: Immediate Intelligence: Average Insight Judgment: Poor Result Diagram: 11/26/17 1110 11/26/17 1110 [facility] Assessment and Plan [id number] Encounter Date: Nov 30, 2017 [id number] Encounter Time: 11:00 [facility] Plan: Necessary Precautions, Individual/Group Therapy, Admin/Titrate Meds, Educate Patient Tobacco Medications: Started Multpiple Antipsychotics Used: No Reason For >1 Antipsychotic: Will use Thorazine, as more predictable sedation. Problems: (1) Schizoaffective disorder Status: Chronic (2) Amphetamine abuse Status: Chronic (3) Hepatitis C Problem Qualifiers (1) Schizoaffective disorder: Schizoaffective disorder type: unspecified Qualified Codes: F25.9 - Schizoaffective disorder, unspecified MANIOR OCHOA MD Nov 30, 2017 14:01
[2017-11-30] MEDS ORDERED: OLANZapine ZYDIS ODT 5MG TABDP PO PRN (14:05)
[2017-11-30] MEDS ORDERED: LORazepam 2 MG/ML VIAL IM PRN (14:10)
[2017-11-30] MEDS ORDERED: WATER STERILE 10 ML VIAL IM ONLY PRN (14:10)
[2017-11-30] MEDS ORDERED: diphenhydrAMINE 50 MG/ML VIAL IM PRN (14:10)
[2017-11-30] MEDS ORDERED: OLANZapine 10 MG VIAL IM ONLY PRN (14:10)
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
[2017-11-30] MEDS: NICOTINE INH SYSTEM 10 MG/INH INH PRN (16:43)
[2017-11-30] MEDS: QUEtiapine FUM 100 MG TAB PO SCH (20:16)
[2017-12-01] MEDS: THIAMINE HCL 100 MG TAB PO SCH (08:11)
[2017-12-01] MEDS: MULTIVITAMINS PO SCH (08:12)
[2017-12-01] MEDS: FOLIC ACID 1 MG TAB PO SCH (08:12)
[2017-12-01] MEDS ORDERED: QUEtiapine FUM 100 MG TAB PO SCH (09:00)
[2017-12-01] MEDS: NICOTINE INH SYSTEM 10 MG/INH INH PRN (11:02)
[2017-12-01] MEDS ORDERED: DIAZEPAM 5 MG TAB PO ONE (11:45)
[2017-12-01] MEDS ORDERED: DIAZEPAM 50 MG/10 ML MDV IM ONE (13:25)
--- NOTE | 2017-12-01 13:38 | BHS Progress Note ---
[facility] - Subjective Progress Notes Subjective This morning, Donna declined to get out of bed for rounds. I went into her room and she was under the covers. She said that she would not get up to talk to us. She had been willing to take her morning dose of Seroquel, however. I said that I would return to talk to her later in the morning. After about an hour, Donna did get up and came to my office. She was restless and saying that she needed medications for her mood disorder. I said that as soon as I finished with my prior patient, I would talk to her. Within a few minutes, she began turning over chairs and slamming doors. Nursing called a code yellow and I immediately came to the desk to talk to the patient. She was highly agitated , yelling, threatening. I ordered IM olanzapine 15 mgs, lorazepam 2 mgs and Benadryl 50 mgs. Donna accepted the IM meds but continued agitated and within a few minutes began slamming doors and damaging the unit. We placed the patient in the seclusion area where she barricaded herself in between the door to two doors in the area. Staff engaged and attempted to de-escalate her. I spoke to the house supervisro and requested that we remove the outer door. She ultimately began to calm down and I spoke with her again and asked about medications she thought might be helpful for her. She feels that she needs "a mood stabilizer." She mentioned "Valium, Klonopin, and Xanax" as agents that have been helpful to her in the past. I ordered an additional 5 mgs of Valium and she agreed to take that orally. We continued close observation, offered food and a Gonzalez blanket. She eventually became more calm but then suddenly exploded again about 1300. I ordered 5 mgs of diazepam IM at that time and also an afternoon dose of Seroquel 200 mgs. She was somewhat calmer for a short time, but then again became threatening, screaming and I ordered chlorpromazine 100 mgs and clonazepam 1 mg orally. Throughout this ordeal, I met with the patient frequently in her room assessing her response to medications as well as level of agitation and trying to problem- solve with her what we need to do to help her. She confided to me that her father was killed in an accident three weeks ago. She has been hearing his voice and seeing "people" coming in and out. She tells me that she cannot tolerate being alone. I asked, again, if she felt suicidal. She said that when is is extremely upset, she feels that way but she does not want to kill herself and would not do it. In addition to talking to the guest house manager who joined us on the unit for several hours, I also talked to Art Isaac about the situation as well as one staff's request that we send the patient to senior care. Mr. Isaac and I agreed that this would not be the best course and might endanger her further. Instead, we would focus on aggressive medication intervention. I also asked for a one-on- one for Donna. Suicidal Ideation: Resolving [facility] - Objective Physical Exam Gait and Station: Steady [facility] Medications Reviewed: Side Effects, Benefits of Medication, Risks Allergies Reviewed: Yes Mental Status Exam General Appearance: Good Eye Contact, Unkept, Tearful, Psychomotor Agitation Speech: Rambling, Inappropriate, Other (Agitated at times, screaming) Mood: Dysthmic/Depressed (upset today about not leaving with box truck washer who she says is coming to get her), Hyperthymic Affect: Anxious, Agitated (extremely labile), Other (Occasional inappropriate laughter. See notes above.) Thought Process: Flight of Ideas, Other (keeps saying she just needs to go home ) Thought Content: Suicidal Ideation (Said she felt suicidal this morning but then by the late afternoon, these feelings had passed.), Auditory Halllucinations, Visual Hallucinations, Other (Hears her father's voice and has been talking to him.) Sensorium: Clear Cognition: Alert & Oriented-Person, Alert & Oriented-Place Memory: Immediate Intelligence: Other (Appears average. Did not do more formal testing) Insight Judgment: Poor B[facility] Assessment and Plan [id number] Encounter Date: Dec 01, 2017 [id number] Encounter Time: 09:15 [facility] Plan: Individual/Group Therapy, Admin/Titrate Meds, Educate Patient Tobacco Medications: Started Multpiple Antipsychotics Used: Yes Reason For >1 Antipsychotic: Acute agitation. Used PRN Zyprexa following am Seroquel. This was not sufficient and we also tried chlorpromazine as well as more Seroquel. Problems: (1) Schizoaffective disorder Status: Chronic Assessment & Plan: Extremely agitated. Placed in seclusion and administered PRN medications. Will provide close observation to reassurance and to prevent injury to patient and staff. Requested a one-on-one. Ordered an EKG given the number of medications administered and their potential to cause conduction delay. None found. I have ordered Seroquel 200 mgs and Klonopin 1 mg each am and at 1400 and Seroquel 300 mgs and Klonopin at hs. I have also ordered Chlorpromazine 100 mgs orally or 50 mgs IM and/or Klonopin 1 mg every four hours for extreme agitation. We corin a chem panel to check LFT's later in the evening. (2) Amphetamine abuse Status: Chronic (3) Elevated liver function tests Status: Acute Assessment & Plan: No nausea, vomiting, diarrhea or complaints of abdominal pain. Need to monitor LFT's and be aware of the potential for medications to exacerbate liver injury (4) Hepatitis C (5) Sinus tachycardia Condition Patient was highly agitated today, destroying fixtures, overturning chairs, slamming doors. She is also complaining of feeling suicidal. We placed her in seclusion for her own safety and to protect others and initiated aggressive medications to help her get back into control. Problem Qualifiers (1) Schizoaffective disorder: Schizoaffective disorder type: bipolar Qualified Codes: F25.0 - Schizoaffective disorder, bipolar type MARIAJOSE CONNELL DO Dec 01, 2017 13:38
[2017-12-01] MEDS ORDERED: QUEtiapine FUM 100 MG TAB PO ONE ×3 (13:55→23:05)
[2017-12-01 14:00] VITALS: BP 118/62
[2017-12-01] MEDS ORDERED: clonazePAM 1 MG TAB PO ONE (14:30)
[2017-12-01] MEDS ORDERED: chlorproMAZINE 25 MG TAB PO ONE (14:30)
[2017-12-01] MEDS: NICOTINE POLACRILEX 2 MG GUM PO PRN ×6 (16:00→22:40)
[2017-12-01] MEDS ORDERED: clonazePAM 1 MG TAB PO PRN (16:15)
[2017-12-01 16:40] VITALS: BP 120/52
[2017-12-01 17:57] VITALS: BP 119/38
[2017-12-01] MEDS ORDERED: clonazePAM 1 MG TAB PO SCH ×3 (18:00→21:00)
[2017-12-01] MEDS: QUEtiapine FUM 100 MG TAB PO SCH (21:00)
[2017-12-01] MEDS: clonazePAM 1 MG TAB PO SCH ×2 (21:00→23:13)
[2017-12-02] MEDS: NICOTINE POLACRILEX 2 MG GUM PO PRN ×6 (03:19→22:11)
[2017-12-02] MEDS: FOLIC ACID 1 MG TAB PO SCH (08:22)
[2017-12-02] MEDS: THIAMINE HCL 100 MG TAB PO SCH (08:22)
[2017-12-02] MEDS: MULTIVITAMINS PO SCH (08:22)
[2017-12-02] MEDS: clonazePAM 1 MG TAB PO SCH ×4 (08:22→20:15)
[2017-12-02 08:28] VITALS: BP 104/68
[2017-12-02] MEDS ORDERED: QUEtiapine FUM 100 MG TAB PO SCH ×2 (09:00→14:00)
--- NOTE | 2017-12-02 09:51 | BHS Progress Note ---
BHS - Subjective Progress Notes Subjective Donna continued to have agitation beginning in the evening and required an additional dose of Seroquel 300 mgs and Klonopin 1 mg following her scheduled bedtime dose. She was up several times during the night to use the bathroom. Has not appeared overly sedated or unsteady. Did complain of some nausea during the night. Was initially calm and more cooperative this morning. I entered Donna's room to talk to her around 9:00 this morning. She was under the covers, moving, but said that she did not want to talk to me and kept her face covered with the blanket. She continues on a one-to-one. Yesterday, Donna required extremely large doses of medications: on 12/02, she received 1100 mgs of Seroquel, 4 mgs of Klonopin, 2 mgs of Ativan, 10 mgs of diazepam, 100 mgs of chlopromazine, and 10 mgs of Zyprexa. I was reassured by her EKG and labs as well as her vitals. She still has mild tachycardia and normal blood pressures. This morning, BP was 104/68 this morning and pulse 101. After reviewing the medications we gave yesterday and discussing with nursing staff, I ordered Seroquel 300 mgs and Klonopin four times daily, but to hold the medication of the patient appeared sedated. Just before lunchtime, Donna had another outburst and started screaming and staff called another code yellow. She received an oral prn of chlopromazine 100 mgs. I talked with her again. She was agitated and very restless. Tells me that she has always been this way and it did not start with the medication. (I recalled the same presentation yesterday when she came to my office before I started high-dose medication). She was still very agitated after an hour and I gave her 1 mg of Klonopin. After about 20 minutes, her agitation lessened but then returned with more screaming, slamming her fist on the glass. There was a second code yellow. I talked with her in her room with staff present for about another 30 minutes. She became calmer, again, and talked her her nightmares, audio and visual hallucinations. She asked for more Seroquel and said she wanted to try to sleep which she did after getting her afternoon dose of 300 mgs. Suicidal Ideation: Ongoing (While agitated, Donna often says she is suicidal then denies it when she becomes calm and wants more privileges) [facility] - Objective Physical Exam Gait and Station: Steady [facility] Medications Reviewed: Side Effects, Benefits of Medication, Risks Allergies Reviewed: Yes Mental Status Exam General Appearance: Good Eye Contact, Unkept, Tearful, Psychomotor Agitation, Other (variable throughout the day) Speech: Rambling, Inappropriate, Other (Agitated at times, screaming, then calm and open) Mood: Dysthmic/Depressed (upset today about not leaving with assembler truck trailer who she says is coming to get her), Hyperthymic Affect: Anxious, Agitated (extremely labile), Other (Occasional inappropriate laughter. See notes above.) Thought Process: Flight of Ideas, Other (keeps saying she just needs to go home , can't stand isolation, nothing is working) Thought Content: Suicidal Ideation (Said she felt suicidal this morning but then by the late afternoon, these feelings had passed.), Auditory Halllucinations, Visual Hallucinations, Other (Hears her father's voice and has been talking to him.) Sensorium: Clear Cognition: Alert & Oriented-Person, Alert & Oriented-Place Memory: Immediate, Recent, Remote Intelligence: Other (Appears average. Did not do more formal testing) Insight Judgment: Poor Result Diagram: 12/01/172042 [facility] Assessment and Plan Scez-uo-Tcov Encounter Date: Dec 02, 2017 Ufzq-uo-Bnbk Encounter Time: 09:00 [facility] Plan: Necessary Precautions, Individual/Group Therapy, Admin/Titrate Meds, Educate Patient Tobacco Medications: Started Multpiple Antipsychotics Used: Yes Reason For >1 Antipsychotic: I have Seroquel ordered routinely and we have used prn chlorpromazine Problems: (1) Schizoaffective disorder Status: Chronic Assessment & Plan: Donna will continue on a one-to-one in our seclusion area until she demonstrates that she can tolerate the stimulation and increased freedom of the milieu safely. I do not want her to decompensate again today like she did yesterday and will use very aggressive medications to help her remain safe and in control. I am ordering Seroquel 300 mgs and Klonopin four times daily which, I understand, is more that the recommended daily dose of Seroquel. I am also aware that Klonopin will continue to accumulate because of his half-life. When Donna begins to show some signs of sedation, I will begin to titrate these downward. I will repeat an EKG this afternoon (2) Amphetamine abuse Status: Chronic (3) Elevated liver function tests Status: Acute (4) Hepatitis C (5) Sinus tachycardia Problem Qualifiers (1) Schizoaffective disorder: Schizoaffective disorder type: bipolar Qualified Codes: F25.0 - Schizoaffective disorder, bipolar type MARIAJOSE CONNELL DO Dec 02, 2017 06:42
[2017-12-02] MEDS: chlorproMAZINE 25 MG TAB PO PRN (11:32)
[2017-12-02 11:37] VITALS: BP 123/70
--- NOTE | 2017-12-02 12:57 | EKG ---
FACILITY: [facility] PATIENT NAME: JESSIE PERDOMO : [id number] MR: [id number] V: [id number] EXAM DATE: ORDERING PHYSICIAN: MARIAJOSE CONNELL TECHNOLOGIST: NAZ Test Reason : ANTIPSYCHOTIC USE Blood Pressure : / mmHG Vent. Rate : 105 BPM Atrial Rate : 105 BPM P-R Int : 140 ms QRS Dur : 086 ms QT Int : 366 ms P-R-T Axes : 068 089 061 degrees QTc Int : 483 ms Sinus tachycardia Otherwise normal ECG When compared with ECG of 26-NOV-2017 11:34, No significant change was found Confirmed by JEFFERSON MEZA ([id number]) on 12/02/2017 7:12:53 PM Referred By: GABRIELA Confirmed By:JEFFERSON MEZA
[2017-12-02] MEDS: QUEtiapine FUM 100 MG TAB PO SCH ×3 (13:12→20:15)
--- NOTE | 2017-12-02 16:06 | EKG ---
FACILITY: [facility] PATIENT NAME: JESSIE PERDOMO : [id number] MR: [id number] V: [id number] EXAM DATE: ORDERING PHYSICIAN: MARIAJOSE CONNELL TECHNOLOGIST: NAZ Test Reason : ANTIPSYCHOTIC MEDS Blood Pressure : / mmHG Vent. Rate : 098 BPM Atrial Rate : 098 BPM P-R Int : 180 ms QRS Dur : 086 ms QT Int : 368 ms P-R-T Axes : 069 089 073 degrees QTc Int : 469 ms Normal sinus rhythm Normal ECG When compared with ECG of 01-DEC-2017 14:47, No significant change was found Confirmed by JEFFERSON MEZA ([id number]) on 12/02/2017 7:13:28 PM Referred By: BECKI Confirmed By:JEFFERSON MEZA
[2017-12-02 19:02] VITALS: BP 132/58
[2017-12-02 22:00] VITALS: BP 120/50
[2017-12-02] MEDS: clonazePAM 1 MG TAB PO PRN (23:00)
[2017-12-03] MEDS: clonazePAM 1 MG TAB PO PRN ×2 (07:06→20:58)
[2017-12-03] MEDS: NICOTINE POLACRILEX 2 MG GUM PO PRN ×5 (07:07→22:10)
[2017-12-03] MEDS: MULTIVITAMINS PO SCH (07:48)
[2017-12-03] MEDS: THIAMINE HCL 100 MG TAB PO SCH (07:48)
[2017-12-03] MEDS: QUEtiapine FUM 100 MG TAB PO SCH ×4 (07:48→20:18)
[2017-12-03] MEDS: FOLIC ACID 1 MG TAB PO SCH (07:48)
[2017-12-03] MEDS: clonazePAM 1 MG TAB PO SCH ×5 (07:49→20:18)
[2017-12-03] MEDS ORDERED: IBUPROFEN 800 MG TAB PO ONE (08:40)
[2017-12-03] MEDS ORDERED: MAGNESIUM HYDROXIDE* 30ML UDCP PO PRN (10:10)
[2017-12-03 12:11] VITALS: BP 123/82
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
[2017-12-03] MEDS: chlorproMAZINE 25 MG TAB PO PRN (15:08)
[2017-12-03] MEDS ORDERED: DOCUSATE SODIUM 100 MG CAP PO SCH (21:00)
[2017-12-04] MEDS: clonazePAM 1 MG TAB PO PRN (02:57)
[2017-12-04] MEDS: FOLIC ACID 1 MG TAB PO SCH (08:38)
[2017-12-04] MEDS: MULTIVITAMINS PO SCH (08:38)
[2017-12-04] MEDS: THIAMINE HCL 100 MG TAB PO SCH (08:38)
[2017-12-04] MEDS: QUEtiapine FUM 100 MG TAB PO SCH ×4 (08:39→20:35)
[2017-12-04 08:46] VITALS: BP 119/92
[2017-12-04] MEDS: NICOTINE POLACRILEX 2 MG GUM PO PRN ×6 (11:12→21:30)
[2017-12-04 11:25] LABS: PLATELET COUNT, AUTOMATED 222 K/uL (150-450)
[2017-12-04] MEDS: clonazePAM 1 MG TAB PO SCH ×3 (12:59→20:35)
[2017-12-04] MEDS ORDERED: IBUPROFEN 600 MG TAB PO PRN (16:10)
[2017-12-04] MEDS ORDERED: IBUPROFEN 600 MG TAB PO ONE (16:10)
[2017-12-04] MEDS ORDERED: lamoTRIgine 25 MG TAB PO ONE (16:10)
--- NOTE | 2017-12-04 16:30 | BHS Progress Note ---
S - Subjective Progress Notes Subjective Pt seen with staff in Unit C, then later again in adolescent area. She remains in control, has not had any aggressive behavior-- last code yellow was Sunday afternoon. She is not oversedated from medication. This afternoon when RN and I went to talk with her she was pleasant and smiling at first. Then asked how long she will be here. As we explained that 10 day started yesterday she became visibly agitated, unable to focus or hear what we were saying, tearful, increased pacing and rocking, saying over and over how she just wants to go home , "Ten days is too long, I can't..." We tried to encourage relaxation, or talking, or watching a funny video, but she continued to pace and cry. She did not become aggressive. She talked about how depressed she is, and I asked if she would like to add lamictal to her regimen-- this should help with mood stability, in particular with the depressed end, which seems to be getting worse since admission. Will start lamictal 50 mg q am and continue clonazepam 1 mg QID and seroquel 300 mg QID. We have dc'd prn clonazepam, and staff are encouraging her to use coping skills and tolerate anxiety as she waits for her standing medications. Labs today (noted below) show an increase in LFT's compared to last draw, but not as high as on admission. Suicidal Ideation: None Homicidal Ideation: None S - Objective Physical Exam Vital Signs Vital Signs 12/01/17 12/04/17 17:57 08:46 Temp 98.4 Pulse 104 Resp 16 B/P (MAP) 119/92 (101) Pulse Ox 95 O2 Delivery Room Air Muscle Strength and Tone: WNL Gait and Station: Steady [facility] Medications Reviewed: Side Effects, Benefits of Medication, Risks Allergies Reviewed: Yes Mental Status Exam General Appearance: Cooperative, Unkept, Tearful, Psychomotor Agitation, Other (variable throughout the day) Speech: Rambling, Inappropriate (cursing when frustrated. No screaming today.) Mood: Dysthmic/Depressed, Hyperthymic Affect: Sad (becoming more consistently depressed), Tearful, Anxious, Agitated (extremely labile), Other (no bizarre laughter today) Thought Process: Other (overall still tangential-- a LITTLE more organized today) Thought Content: No Suicidal Ideation, No Homicidal Ideation, No Delusions, Auditory Halllucinations, Visual Hallucinations, No Thought Broadcasting, No Ideas of Reference, No Obsessions, No Compulsions Sensorium: Clear Cognition: Alert & Oriented-Person, Alert & Oriented-Place, Alert-Oriented- Situation Memory: Immediate, Recent, Remote Intelligence: Average Insight Judgment: Poor Result Diagram: 12/04/17 1118 12/04/17 1118 [facility] Assessment and Plan Slvr-is-Pmld Encounter Date: Dec 04, 2017 Ceoq-gv-Yuur Encounter Time: 11:00 [facility] Plan: Necessary Precautions, Individual/Group Therapy, Admin/Titrate Meds, Educate Patient Tobacco Medications: Started Multpiple Antipsychotics Used: Yes Reason For >1 Antipsychotic: I have Seroquel ordered routinely and we have used prn chlorpromazine Problems: (1) Schizoaffective disorder Status: Chronic (2) Amphetamine abuse Status: Chronic (3) Hepatitis C Problem Qualifiers (1) Schizoaffective disorder: Schizoaffective disorder type: bipolar Qualified Codes: F25.0 - Schizoaffective disorder, bipolar type MAINOR OCHOA MD Dec 04, 2017 16:30
[2017-12-04 16:37] VITALS: BP 103/61
[2017-12-04 18:17] VITALS: BP 114/68
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
[2017-12-04] MEDS: chlorproMAZINE 25 MG TAB PO PRN (23:22)
[2017-12-05] MEDS: FOLIC ACID 1 MG TAB PO SCH (08:30)
[2017-12-05] MEDS: clonazePAM 1 MG TAB PO SCH ×2 (08:31→17:16)
[2017-12-05] MEDS: QUEtiapine FUM 100 MG TAB PO SCH ×4 (08:31→20:35)
[2017-12-05] MEDS: MULTIVITAMINS PO SCH (08:31)
[2017-12-05] MEDS: THIAMINE HCL 100 MG TAB PO SCH (08:31)
[2017-12-05] MEDS: NICOTINE POLACRILEX 2 MG GUM PO PRN ×5 (08:35→20:53)
[2017-12-05 08:45] VITALS: BP 114/69
[2017-12-05] MEDS ORDERED: lamoTRIgine 25 MG TAB PO SCH (09:00)
[2017-12-05] MEDS: LITHIUM CARBONATE 300 MG CAP PO SCH ×2 (10:33→17:17)
--- NOTE | 2017-12-05 12:06 | BHS Progress Note ---
BHS - Subjective Progress Notes Subjective Patient able to maintain her composure today, when dealing with stressful call during treatment team from mother and Grandma. Patient indicating a desire to return to [place], and denies need of further care in an inpatient unit. Patient noted to be thinking in a much more linear fashion. Patient will be allowed to be in the general population, patient remains cooperative. Patient denies any psychotic symptoms today. Patient stating she needs "the mood stabilizer Klonopin". Patient now willing to take lithium. Originally lithium was thought to not be appropriate secondary to patient having to have levels drawn and concerns of non-compliance as an outpatient. However patient now has probable hepatitis C, and requires large doses of hepatic metabolized medications to maintain stability. The patient's tolerance alone of sedating anti-psychotics suggests ongoing bipolar elevated symptoms. In order to avoid further additional hepatic impairment, will start lithium today in hopes that less anti-psychotics are needed. Will stop Lamictal. Will encourage compliance, with possible option of return to [place], verses hearing for commitment. Suicidal Ideation: None Homicidal Ideation: None BHS - Objective Physical Exam Vital Signs Vital Signs Date Time Temp Pulse Resp B/P (MAP) Pulse Ox O2 Delivery O2 Flow Rate FiO2 12/05/17 08:45 98.0 100 114/69 (84) 99 Room Air 12/01/17 17:57 16 Hematology Test 11/24/17 00:00 11/24/17 22:18 11/26/17 00:00 11/26/17 08:00 Hepatitis A IgM Antibody Negative (Negative) Hepatitis B Surface Antigen Negative (Negative) Hepatitis B Core IgM Antibody Negative (Negative) Hepatitis C Antibody >11.00 IV Hepatitis C Interpretation High pos (Negative) Hepatitis Interpretation See note HIV (1&2) Antibody Negative (NEGATIVE) Urine Color Lore Urine Clarity Slightly-cloudy Urine pH 6.0 pH (4.8-9.5) Urine Specific [place] 1.032 Urine Protein Negative mg/dL (NEGATIVE) Urine Glucose (UA) Negative mg/dL (NEGATIVE) Urine Ketones Negative mg/dL (NEGATIVE) Urine Blood Negative (NEGATIVE) Urine Nitrite Negative (NEGATIVE) Urine Bilirubin Negative (NEGATIVE) Urine Urobilinogen 4.0 mg/dL (0.2-1.9) Urine Leukocyte Esterase Negative (NEGATIVE) Urine RBC None /HPF (0-2/HPF) Urine WBC 6 /HPF (0-5/HPF) Urine Squamous Epithelial Cells Many /LPF (</=FEW) Urine Bacteria Few /HPF (NONE-FEW) Urine Hyaline Casts Few /LPF (NONE-FEW) Urine Mucus Few /HPF (NONE-FEW) Urine HCG, Qualitative Negative (NEGATIVE) Test 11/26/17 11:10 12/04/17 11:18 Free Thyroxine 1.57 ng/dl (0.78-2.19) Free Triiodothyronine 3.0 pg/mL (2.4-4.2) Red Blood Count 4.26 M/uL (4.17-5.56) Mean Corpuscular Volume 88.6 fL (80.0-96.0) Mean Corpuscular Hemoglobin 30.6 pg (26.0-33.0) Mean Corpuscular Hemoglobin Concent 34.5 g/dL (32.0-36.0) Red Cell Distribution Width 13.4 % (11.5-14.5) Mean Platelet Volume 8.6 fL (7.2-11.1) Neutrophils (%) (Auto) 54.6 % (39.4-72.5) Lymphocytes (%) (Auto) 27.4 % (17.6-49.6) Monocytes (%) (Auto) 14.1 % (4.1-12.4) Eosinophils (%) (Auto) 3.3 % (0.4-6.7) Basophils (%) (Auto) 0.6 % (0.3-1.4) Nucleated RBC Relative Count (auto) 0.0 /100WBC Neutrophils # (Auto) 3.3 K/uL (2.0-7.4) Lymphocytes # (Auto) 1.7 K/uL (1.3-3.6) Monocytes # (Auto) 0.9 K/uL (0.3-1.0) Eosinophils # (Auto) 0.2 K/uL (0.0-0.5) Basophils # (Auto) 0.0 K/uL (0.0-0.1) Nucleated RBC Absolute Count (auto) 0.00 K/uL Sodium Level 137 mmol/L (137-145) Potassium Level 3.9 mmol/L (3.5-5.0) Chloride Level 101 mmol/L (98-107) Carbon Dioxide Level 26 mmol/L (22-31) Blood Urea Nitrogen 16 mg/dl (7-18) Creatinine 0.70 mg/dl (0.52-1.04) Glomerular Filtration Rate Calc > 60.0 Random Glucose 115 mg/dl (75-110) Calcium Level 8.6 mg/dl (8.4-10.2) Total Bilirubin 0.2 mg/dl (0.2-1.3) Aspartate Amino Transf (AST/SGOT) 194 U/L (0-35) Alanine Aminotransferase (ALT/SGPT) 385 U/L (0-56) Alkaline Phosphatase 60 U/L (0-126) Total Protein 5.6 g/dl (6.3-8.2) Albumin 3.4 g/dl (3.5-5.0) Chemistry Test 11/24/17 00:00 11/24/17 22:18 11/26/17 00:00 11/26/17 08:00 Hepatitis A IgM Antibody Negative (Negative) Hepatitis B Surface Antigen Negative (Negative) Hepatitis B Core IgM Antibody Negative (Negative) Hepatitis C Antibody >11.00 IV Hepatitis C Interpretation High pos (Negative) Hepatitis Interpretation See note HIV (1&2) Antibody Negative (NEGATIVE) Urine Color Lore Urine Clarity Slightly-cloudy Urine pH 6.0 pH (4.8-9.5) Urine Specific [place] 1.032 Urine Protein Negative mg/dL (NEGATIVE) Urine Glucose (UA) Negative mg/dL (NEGATIVE) Urine Ketones Negative mg/dL (NEGATIVE) Urine Blood Negative (NEGATIVE) Urine Nitrite Negative (NEGATIVE) Urine Bilirubin Negative (NEGATIVE) Urine Urobilinogen 4.0 mg/dL (0.2-1.9) Urine Leukocyte Esterase Negative (NEGATIVE) Urine RBC None /HPF (0-2/HPF) Urine WBC 6 /HPF (0-5/HPF) Urine Squamous Epithelial Cells Many /LPF (</=FEW) Urine Bacteria Few /HPF (NONE-FEW) Urine Hyaline Casts Few /LPF (NONE-FEW) Urine Mucus Few /HPF (NONE-FEW) Urine HCG, Qualitative Negative (NEGATIVE) Test 11/26/17 11:10 12/04/17 11:18 Free Thyroxine 1.57 ng/dl (0.78-2.19) Free Triiodothyronine 3.0 pg/mL (2.4-4.2) White Blood Count 6.1 k/uL (4.5-11.0) Red Blood Count 4.26 M/uL (4.17-5.56) Hemoglobin 13.0 g/dL (12.0-16.0) Hematocrit 37.8 % (34.0-47.0) Mean Corpuscular Volume 88.6 fL (80.0-96.0) Mean Corpuscular Hemoglobin 30.6 pg (26.0-33.0) Mean Corpuscular Hemoglobin Concent 34.5 g/dL (32.0-36.0) Red Cell Distribution Width 13.4 % (11.5-14.5) Platelet Count 222 K/uL (150-450) Mean Platelet Volume 8.6 fL (7.2-11.1) Neutrophils (%) (Auto) 54.6 % (39.4-72.5) Lymphocytes (%) (Auto) 27.4 % (17.6-49.6) Monocytes (%) (Auto) 14.1 % (4.1-12.4) Eosinophils (%) (Auto) 3.3 % (0.4-6.7) Basophils (%) (Auto) 0.6 % (0.3-1.4) Nucleated RBC Relative Count (auto) 0.0 /100WBC Neutrophils # (Auto) 3.3 K/uL (2.0-7.4) Lymphocytes # (Auto) 1.7 K/uL (1.3-3.6) Monocytes # (Auto) 0.9 K/uL (0.3-1.0) Eosinophils # (Auto) 0.2 K/uL (0.0-0.5) Basophils # (Auto) 0.0 K/uL (0.0-0.1) Nucleated RBC Absolute Count (auto) 0.00 K/uL Glomerular Filtration Rate Calc > 60.0 Calcium Level 8.6 mg/dl (8.4-10.2) Total Bilirubin 0.2 mg/dl (0.2-1.3) Aspartate Amino Transf (AST/SGOT) 194 U/L (0-35) Alanine Aminotransferase (ALT/SGPT) 385 U/L (0-56) Alkaline Phosphatase 60 U/L (0-126) Total Protein 5.6 g/dl (6.3-8.2) Albumin 3.4 g/dl (3.5-5.0) Urinalysis Test 11/26/17 00:00 11/26/17 08:00 Urine Color Lore Urine Clarity Slightly-cloudy Urine pH 6.0 pH (4.8-9.5) Urine Specific [place] 1.032 Urine Protein Negative mg/dL (NEGATIVE) Urine Glucose (UA) Negative mg/dL (NEGATIVE) Urine Ketones Negative mg/dL (NEGATIVE) Urine Blood Negative (NEGATIVE) Urine Nitrite Negative (NEGATIVE) Urine Bilirubin Negative (NEGATIVE) Urine Urobilinogen 4.0 mg/dL (0.2-1.9) Urine Leukocyte Esterase Negative (NEGATIVE) Urine RBC None /HPF (0-2/HPF) Urine WBC 6 /HPF (0-5/HPF) Urine Squamous Epithelial Cells Many /LPF (</=FEW) Urine Bacteria Few /HPF (NONE-FEW) Urine Hyaline Casts Few /LPF (NONE-FEW) Urine Mucus Few /HPF (NONE-FEW) Urine HCG, Qualitative Negative (NEGATIVE) Muscle Strength and Tone: WNL Gait and Station: Steady [facility] Medications Reviewed: Side Effects, Benefits of Medication, Risks Allergies Reviewed: Yes Mental Status Exam General Appearance: Casual, Cooperative, Polite, Unkept, No Tearful, Psychomotor Agitation (minimal), No Psychomotor Retardation, Other (variable throughout the day) Speech: Clear, Spontaneous, Normal Rate, Normal Rhythm, Normal Volume, Normal Tone, Rambling, Inappropriate (cursing when frustrated. No screaming today.) Mood: Dysthmic/Depressed, Hyperthymic Affect: Calm, Neutral, Tearful, Anxious, Agitated (minimal and controlled today. ) Thought Process: Organized, No Loose Associations, Other (Overall still tangential) Thought Content: No Suicidal Ideation, No Homicidal Ideation, No Delusions, Auditory Halllucinations, Visual Hallucinations, No Thought Broadcasting, No Ideas of Reference, No Obsessions, No Compulsions Sensorium: Clear Cognition: Alert & Oriented-Person, Alert & Oriented-Place, Alert-Oriented- Situation Memory: Immediate, Recent, Remote Intelligence: Average Insight Judgment: Poor (concerning drug addiction, medications helpful in stabilizing underlying schizoaffective condition. ) Result Diagram: 12/04/17 1118 12/04/17 1118 [facility] Assessment and Plan [id number] Encounter Date: Dec 05, 2017 [id number] Encounter Time: 09:00 S Plan: Necessary Precautions, Individual/Group Therapy, Admin/Titrate Meds, Educate Patient Tobacco Medications: Started Multpiple Antipsychotics Used: No Problems: (1) Amphetamine abuse Status: Chronic (2) Schizoaffective disorder Status: Chronic Condition 1. start lithium. 2. stop lamictal. 3. continue treatment. 4. lower daytime dose of Klonopin. 5. explore potential disposition options. Problem Qualifiers (1) Schizoaffective disorder: Schizoaffective disorder type: bipolar Qualified Codes: F25.0 - Schizoaffective disorder, bipolar type ALEKSANDR GALDAMEZ MD Dec 05, 2017 12:06
[2017-12-05] MEDS: clonazePAM 0.5 MG TAB PO SCH ×2 (12:59→20:35)
[2017-12-05] MEDS ORDERED: clonazePAM 0.5 MG TAB PO SCH (13:00)
[2017-12-05] MEDS ORDERED: clonazePAM 0.5 MG ODT TABDP PO SCH (13:00)
[2017-12-05 20:26] VITALS: BP 125/85
[2017-12-05] MEDS: TRIMETH/SULFA DS 160-800MG TAB PO SCH (21:40)
[2017-12-05] MEDS ORDERED: hydrOXYzine PAMOATE 25 MG CAP PO PRN (22:25)
[2017-12-06] MEDS: NICOTINE POLACRILEX 2 MG GUM PO PRN ×8 (04:47→19:39)
[2017-12-06 05:48] VITALS: BP 119/51
--- NOTE | 2017-12-06 08:15 | EKG ---
FACILITY: [facility] PATIENT NAME: JESSIE PERDOMO : [id number] MR: [id number] V: [id number] EXAM DATE: ORDERING PHYSICIAN: ALEKSANDR GALDAMEZ TECHNOLOGIST: AGUS Test Reason : TAKINGMEDS Blood Pressure : / mmHG Vent. Rate : 098 BPM Atrial Rate : 098 BPM P-R Int : 200 ms QRS Dur : 084 ms QT Int : 374 ms P-R-T Axes : 056 086 057 degrees QTc Int : 477 ms Sinus rhythm with rate at upper limits of normal Nonspecific ST findings inferior leads When compared with ECG of 02-DEC-2017 15:52, No significant change was found Confirmed by NARCISA HITCHCOCK ([id number] on 12/06/2017 3:25:15 PM Referred By: GABRIELA Confirmed By:NARCISA HITCHCOCK
[2017-12-06] MEDS: FOLIC ACID 1 MG TAB PO SCH (08:46)
[2017-12-06] MEDS: clonazePAM 1 MG TAB PO SCH ×2 (08:46→20:23)
[2017-12-06] MEDS: OMEGA-3 500 MG CAP PO SCH (08:46)
[2017-12-06] MEDS: TRIMETH/SULFA DS 160-800MG TAB PO SCH ×2 (08:46→20:22)
[2017-12-06] MEDS: LITHIUM CARBONATE 300 MG CAP PO SCH (08:46)
[2017-12-06] MEDS: CHOLECALCIFEROL 1000 UNIT TAB PO SCH (08:47)
[2017-12-06] MEDS: MULTIVITAMINS PO SCH (08:47)
[2017-12-06] MEDS: THIAMINE HCL 100 MG TAB PO SCH (08:47)
--- NOTE | 2017-12-06 09:18 | BHS Progress Note ---
[facility] - Subjective Progress Notes Subjective Patient very polite and cooperative today, and taking a much more active role in her treatment. Patient logically pursuing bus ticket purchase. Patient at this point is stabilizing well. Hopefully lithium will allow for reduction in seroquel. Patient has questionable UA, along with clinical complaints of dysuria. Bactrim started. Will have lithium level and routine labs in AM. Will decrease seroquel overall and load heavier in evening. will increase lithium. Stop ibuprofen, and tylenol. Explore disposition options today. At this point will plan for discharge back to [place] where patient will hopefully continue treatment, and avoid illicit substance use. Suicidal Ideation: None Homicidal Ideation: None [facility] - Objective Physical Exam Vital Signs Vital Signs Date Time Temp Pulse Resp B/P (MAP) Pulse Ox O2 Delivery O2 Flow Rate FiO2 12/06/17 05:48 97.7 102 119/51 (73) 97 Room Air Muscle Strength and Tone: WNL Gait and Station: Steady [facility] Medications Reviewed: Side Effects, Benefits of Medication, Risks Allergies Reviewed: Yes Mental Status Exam General Appearance: Casual, Well Groomed, Good Eye Contact, Cooperative, Polite , Good Interaction, Unkept, No Tearful, No Psychomotor Agitation, No Psychomotor Retardation, No Bizarre Mannerisms, No Tics Speech: Clear, Spontaneous, Normal Rate, Normal Rhythm, Normal Volume, Normal Tone, No Garbled, No Rambling, No Inappropriate Mood: No Dysthmic/Depressed, Euthymic, No Hyperthymic Affect: Full and Appropriate, Calm, No Sad, No Neutral, No Flat, No Withdrawn, No Tearful, No Anxious, No Agitated Thought Process: Organized, Logical, Goal Directed, No Loose Associations, No Flight of Ideas Thought Content: No Suicidal Ideation, No Homicidal Ideation, No Delusions, No Auditory Halllucinations, No Visual Hallucinations, No Thought Broadcasting, No Ideas of Reference, No Obsessions, No Compulsions Sensorium: Clear Cognition: Alert & Oriented-Person, Alert & Oriented-Place, Alert & Oriented- Time, [id number]-[id number] Memory: Immediate, Recent, Remote Intelligence: Average Insight Judgment: Fair (improved in absence of drug use and while taking medications. ) Result Diagram: 12/04/17 1118 12/04/17 1118 [facility] Assessment and Plan Fpbi-mi-Qara Encounter Date: Dec 06, 2017 Punm-sz-Roaz Encounter Time: 08:40 [facility] Plan: Necessary Precautions, Individual/Group Therapy, Admin/Titrate Meds, Educate Patient Tobacco Medications: Started Multpiple Antipsychotics Used: No Problems: (1) Amphetamine abuse Status: Chronic (2) Schizoaffective disorder Status: Chronic Condition 1. continue treatment. 2. labs tomorrow. 3. work on arranging travel to [place]. 4. decrease seroquel, increase lithium. Problem Qualifiers (1) Schizoaffective disorder: Schizoaffective disorder type: bipolar Qualified Codes: F25.0 - Schizoaffective disorder, bipolar type ALEKSANDR GALDAMEZ MD Dec 06, 2017 09:18
[2017-12-06] MEDS ORDERED: QUEtiapine FUM 100 MG TAB PO SCH ×2 (12:00→21:00)
[2017-12-06 12:59] VITALS: BP 129/61
[2017-12-06] MEDS ORDERED: LITHIUM CARBONATE 300 MG CAP PO SCH (21:00)
[2017-12-06 21:47] VITALS: BP 119/63
[2017-12-07] MEDS ORDERED: LITHIUM CARBONATE 300 MG TABCR PO SCH ×2
[2017-12-07] MEDS ORDERED: TRIMETH/SULFA DS 160-800MG TAB PO SCH
[2017-12-07 06:16] VITALS: BP 117/66
[2017-12-07] MEDS: NICOTINE POLACRILEX 2 MG GUM PO PRN ×2 (06:21→11:55)
[2017-12-07] MEDS: THIAMINE HCL 100 MG TAB PO SCH (08:19)
[2017-12-07] MEDS: OMEGA-3 500 MG CAP PO SCH (08:19)
[2017-12-07] MEDS: TRIMETH/SULFA DS 160-800MG TAB PO SCH (08:19)
[2017-12-07] MEDS: CHOLECALCIFEROL 1000 UNIT TAB PO SCH (08:19)
[2017-12-07] MEDS: FOLIC ACID 1 MG TAB PO SCH (08:19)
[2017-12-07] MEDS: clonazePAM 1 MG TAB PO SCH (08:19)
[2017-12-07] MEDS: MULTIVITAMINS PO SCH (08:19)
[2017-12-07] MEDS: LITHIUM CARBONATE 300 MG CAP PO SCH (08:19)
[2017-12-07 09:51] LABS: PLATELET COUNT, AUTOMATED 227 K/uL (150-450)
[2017-12-07] MEDS ORDERED: SULF-198 PO (10:52)
[2017-12-07] MEDS ORDERED: OMEG1CAP35 PO (10:53)
[2017-12-07] MEDS ORDERED: LIT300CAP PO ×2 (10:54)
[2017-12-07] MEDS ORDERED: QUET200T29 PO ×2 (10:55)
[2017-12-07] MEDS ORDERED: MULT-1379 PO (10:56)
[2017-12-07] MEDS ORDERED: CHOL10005 PO (10:56)
[2017-12-07] MEDS ORDERED: NICO-219 BC (10:56)
[2017-12-07] MEDS ORDERED: QUEtiapine FUM 100 MG TAB PO SCH ×3 (12:00)
[2017-12-07 13:30] VITALS: BP 108/62
--- NOTE | 2017-12-07 16:41 | DISCHARGE SUMMARY ---
Patient was seen approximately 1000 hours on the morning of December 07, 2017 for note concerning this dictation. FINAL DIAGNOSES PER DSM-V Stimulant-induced psychosis, resolved. Likely bipolar disorder unspecified, bipolar 1 versus bipolar 2. Rule out schizoaffective disorder. Patient has high probability of having newly diagnosed hepatitis C at this time , requires confirmatory testing. Patient also known to use cannabis, alcohol and believed to have a history of other substance abuse as well. Patient known to have supportive relationship with mother and grandmother in [place]. REASON FOR ADMISSION This is a 22-year-old female who was initially admitted in a state of psychosis. Patient traveling with a friend through [facility]. Patient was admitted initially on a voluntary basis. Patient again in a state of psychosis appeared to be likely induced by amphetamines. Patient remained on the unit, initially taking quite a while to clear psychosis, patient becoming combative at times, requiring chemical restraint. Multiple code yellows were called. Eventually the patient would take medications including antipsychotics and mood stabilizers. The patient eventually became very clear, cooperative and at that time it was decided that patient would not need to go to the [facility] for further care, but would be able to travel successfully back to [place] , abstain from substance use and continue to seek treatment. PHYSICAL EXAMINATION GENERAL: Please see H and P for full details. Notable for a 22-year-old female , combative and in a state of psychosis at the time of admission. VITAL SIGNS: At the time of admission, temperature 98.5, pulse 118, respiratory rate 14, blood pressure 116/104 and pulse oximetry 93 on room air. At the time of discharge from [facility], temperature 97.3, pulse 105, respiratory rate 16, blood pressure 117/66 and pulse oximetry 97 on room air. LABORATORY DATA CBC on 12/07/2017 unremarkable. Chemistry panel on December 07, 2017 remarkable for AST elevated at 112, ALT elevated at 311, random glucose slightly low at 58 , free T4 1.57, free T3 3.0. Gardiner level on December 07, 2017 0.5. Urinalysis on December 05, 2017 did show trace leukocyte esterase with 5 white blood cells and squamous epithelial cells present. Awaiting culture and sensitivity. Hepatitis screen negative for A and B, likely that hepatitis C is a new diagnosis in this patient. Confirmatory screen not done at the time of departure. HIV 1 and 2 antibody was negative. MENTAL STATUS EXAMINATION AT THE TIME OF DISCHARGE GENERAL APPEARANCE, BEHAVIOR AND ATTITUDE: This is a 22-year-old female, well groomed, making good eye contact, interacting appropriately with an appropriate sense of humor, no longer demonstrating laughter of inappropriate manner. Patient able to communicate effectively with mother and grandmother on the phone and interact well with other staff members. No bizarre mannerisms or tics. No psychomotor agitation or retardation. SPEECH: Within normal limits, regular rate, rhythm, volume and tone. MOOD: Described as good. AFFECT: Full and bright. . THOUGHT PROCESSES: Goal directed, logical. No evidence of loose associations or flight of ideas existed. THOUGHT CONTENT: No further evidence f auditory or visual hallucinations. No ideas of reference, thought broadcastings, delusions, obsessions, compulsions, and no suicidal or homicidal ideation. SENSORIUM: Clear. COGNITION: Alert and oriented to person, place, time and situation. MEMORY: Immediate, recent and remote estimated intact. INTELLIGENCE: Average based on multiple interviews. INSIGHT AND JUDGMENT: Considered grossly intact and appropriate for ongoing outpatient management in the absence of illicit substance use. RESULTS OF TESTING IMAGING: None. LABORATORY DATA: See above. CONSULTATIONS: None. TREATMENT Patient received medications, participated in individual and group therapy. HOSPITAL COURSE Patient initially presenting in a manic psychotic likely triggered by methamphetamine use state. Patient did respond to a variety of antipsychotic sedating medications, eventually using Seroquel and lithium in this cooperative patient. Some benzodiazepines were used while the patient was on the unit. These are thought to be less than helpful as patient with a known history of illicit substance and drug addiction on an outpatient basis and were discontinued. Patient did slowly continue to improve to where she was very appropriate and cooperative and had a good understanding of condition at the time of discharge. CONDITION OF PATIENT ON DISCHARGE Stable. Considered minimal risk to herself or others in the absence of substance use and appropriate for outpatient care. DISPOSITION Patient discharged. She would take a bus back to [place]. She would meet up with grandmother and mother there and would continue outpatient care. DISCHARGE MEDICATIONS 1. Seroquel 200 mg q.noon and 400 mg at bedtime. 2. Gardiner 300 mg q.a.m. and 600 mg at bedtime. 3. Multivitamin. The patient was encouraged to continue to stop smoking. Avoid ibuprofen due to concerns with lithium. Avoid Tylenol due to hep C concerns. Avoid alcohol, all illicit substances. Patient would follow up with primary care provider for further evaluation of potential and highly likely hepatitis C at this time. Patient indicating an understanding of hepatitis C and that she could transmit hepatitis C to others. Patient would stay on medications and abstain from methamphetamine, marijuana, alcohol, and other illicit substances. Patient would get a lithium level, a trough a.m. level within one week of discharge. Patient would finish course of Bactrim for clinically relevant symptoms of UTI. Medications were provided on a three day amount from pharmacy prior to discharge as well. Patient would call the crisis line if any symptoms return. Risks, benefits and alternatives of the above discharge plan were discussed. Informed consent was given to proceed with above discharge plan by this cooperative patient, patient's mother and grandmother aware of her travel plans as well. DARYL
== END 2017-12-07 14:00 | disposition home or self-care (01) | DRG 885 ==
LOC: BHS 23:13
PROVIDERS: ADMIT Psychiatry & Neurology Psychiatry; ATTEND Psychiatry & Neurology Psychiatry
DX: F25.9 Schizoaffective disorder, unspecified (principal); F15.151 Other stimulant abuse with stimulant-induced psychotic disorder with hallucinations; R45.851 Suicidal ideations; F12.10 Cannabis abuse, uncomplicated; B19.20 Unspecified viral hepatitis C without hepatic coma; R00.0 Tachycardia, unspecified; Z91.14 Patient's other noncompliance with medication regimen; Z91.410 Personal history of adult physical and sexual abuse; Z63.4 Disappearance and death of family member; Z81.8 Family history of other mental and behavioral disorders; Z59.0 Homelessness
CPT/HCPCS: 36415; 80074; 80178; 81001; 81025; 82040; 82247; 82310; 82374; 82435; 82565; 82947; 84075; 84132; 84155; 84295; 84439; 84450; 84460; 84481; 84520; 85025; 86703; 87088; 93005; A4216; J1200; J2060; J3360; J3490; Q0161; Q0163; Q0177